=== PATIENT | male | born 1935 | race Caucasian/White ===

== ENCOUNTER 2023-02-12 13:57 | Outpatient (REF) | payer OTHER, SELFPAY ==
--- NOTE | ~2023-02-12 | XR_ITS ---
EXAMINATION: XR HIP, RIGHT CLINICAL INFORMATION: Pain COMPARISON: None available. TECHNIQUE: Two views of the right hip. FINDINGS: No acute fracture or dislocation. Mild degenerative changes of the right hip with degenerative spurring. Soft tissues are unremarkable. Partially imaged penile prosthesis. XR/XR hip RT min 2V IMPRESSION: Mild degenerative changes of the hip.
[2023-02-12 17:08] LABS: MANUAL DIFF FLAG NO
[2023-02-12 17:28] LABS: Alanine Aminotransferase 34 U/L (0-40); Albumin Level 3.9 g/dL (3.5-5.0); Alkaline Phosphatase 143 U/L (39-117); Anion Gap 12 (12-20); Aspartate Amino Transferase 35 U/L (5-37); Bilirubin Total 0.9 mg/dL (0.0-1.0); Blood Urea Nitrogen 23 mg/dL (9-16); Calcium 8.9 mg/dL (8.4-10.2); Carbon Dioxide 28 mmol/L (22-29); Chloride 102 mmol/L (96-108); Estimated Glomerular Filt Rate 55; Glucose Random 103 mg/dL (60-115); Sodium 137 mmol/L (135-145)
[2023-02-12 17:52] LABS: TSH reflex Free T4 3.37 uIU/mL (0.32-4.0); Vitamin B12 1317 pg/mL (200-900)
[2023-02-12 19:34] LABS: Basophils Absolute Auto 0.1 X10*3/uL (0.0-0.2); Eosinophils Absolute Auto 0.9 X10*3/uL (0.0-0.4); Eosinophils Percent Auto 7.2 % (0-4); Imm Gran Abs Auto 0.07 X10*3/uL (0.00-0.03); Imm Gran Pct Auto 0.6 % (0.0-0.4); Lymphocytes Absolute Auto 4.5 X10*3/uL (1.2-4.9); Lymphocytes Percent Auto 36.2 % (20-40); Mean Corpuscular HGB Conc 32.6 g/dl (31.0-36.0); Mean Corpuscular Hemoglobin 29.3 pg (27.0-33.0); Mean Corpuscular Volume 89.8 fL (80.0-98.0); Mean Platelet Volume 13.8 fL (9.4-12.4); Monocytes Absolute Auto 1.1 X10*3/uL (0.1-1.2); Monocytes Percent Auto 8.6 % (2-11); Neutrophils Absolute Auto 5.7 x10*3/uL (2.0-8.3); Neutrophils Percent Auto 46.4 % (45-73); Platelet Count 111 X10*3/uL (160-400); Red Blood Count 5.12 X10*6/uL (4.60-5.80); Red Cell Distribution Width 15.8 % (11.0-16.0); White Blood Count 12.3 X10*3/uL (4.8-10.8)
[2023-02-13 05:26] LABS: Estimated Average Glucose 151 mg/dL; Hemoglobin A1c % 6.9 %
[2023-02-14 03:04] LABS: LDL Cholesterol Direct 54 mg/dL (<100)
== END 2023-02-12 13:58 | disposition home or self-care (01) ==
LOC: HO.HMGCX 13:57
PROVIDERS: PCP Internal Medicine; Visit Provider Internal Medicine
DX: F03.90 Unspecified dementia, unspecified severity, without behavioral disturbance, psychotic disturbance, mood disturbance, and anxiety (principal); J44.9 Chronic obstructive pulmonary disease, unspecified; E78.9 Disorder of lipoprotein metabolism, unspecified; M25.551 Pain in right hip; E11.40 Type 2 diabetes mellitus with diabetic neuropathy, unspecified
CPT/HCPCS: 36415; 73502; 80053; 82607; 83036; 83721; 84443; 85025

== ENCOUNTER → 2023-05-02 12:22 | Outpatient (BNVA) | payer OTHER, SELFPAY | PROVIDERS: Visit Provider Physician Assistant | DX: M54.16 Radiculopathy, lumbar region (principal) | CPT/HCPCS: 99202 ==

== ENCOUNTER 2023-05-15 12:40 | Outpatient (AMB) | payer OTHER, SELFPAY ==
[2023-05-15 12:47] VITALS: BP 132/60; PULSE 70; O2SAT 98; BMI 37.0
--- NOTE | 2023-05-15 12:47 | MHC.PC.OV ---
Vital Signs 05/15/23 12:47 Height 5 ft 7 in Weight 236 lb 8 oz BMI 37.0 BP 132/60 Blood Pressure Location Rt brachial Position Sitting Pulse 70 Pulse Source Pulse Oximeter Pulse Oximetry (%) 98 Oxygen Delivery Method Room Air Intake Visit Reasons: 3m Allergies No Known Allergies Allergy (Verified 05/15/23 12:47) Medication List - Last Reconciled 05/15/23 by Leonardo Wynn MD amlodipine 10 mg PO DAILY aspirin 81 mg PO DAILY atorvastatin 40 mg PO DAILY blood sugar diagnostic (FreeStyle Lite Strips) As directed carbamide peroxide 6.5% (Debrox) 5 drps otic (ears) DAILY 4 days dapagliflozin propanediol (Farxiga) 10 mg PO DAILY dulaglutide (Trulicity) 4.5 mg (0.5 mL) subcut QWEEK 90 days gabapentin 300 mg PO BEDTIME galantamine ER 24 mg PO DAILY 90 days glipizide 10 mg PO DAILY levothyroxine 88 mcg PO DAILY losartan 100 mg PO DAILY pioglitazone 15 mg PO DAILY tamsulosin 0.4 mg PO BEDTIME umeclidinium 62.5 mcg/actuation (Incruse Ellipta) 1 inh inhalation DAILY Tobacco use date assessed: 05/15/23 Fall risk assessment: No Falls in past year Last assessed Fall Risk: 05/15/23 Dental Screening Dental Screen Date: 05/15/23 Did you have a dental visit in the last 12 months?: Yes Did you have a dental problem in the last 6 months where you did not have access to dental care?: No Was dental information given to patient?: No HPI 3m HPI Details Patient is 88-year-old gentleman came in today for his regular follow-up appointment We have a professional aluminum sheet cutter present today as patient speaks only Portuguese Diabetes mellitus: he is on Trulicity and glipizide along with Actos 15 mg and Farxiga hemoglobin A1c is controlled patient is tolerating medication. diabetic neuropathy : he is on gabapentin 300 mg at night Patient also have history of skin cancer and is currently seeing a appraiser personal property. Patient has appointment with neurology coming of this month to be evaluated for dementia and for loss of taste since COVID Hypothyroidism: Patient is taking levothyroxine 88 mcg, TSH stable Blood pressure is stable continue losartan 100 mg and amlodipine 10 mg Patient is also on atorvastatin 40 mg for lipid control Tamsulosin for prostate COPD: History of smoking for years currently taking Incruse Ellipta with good control of symptoms BMI is elevated having difficulty losing weight Continued to have back pain which is responding to Tylenol patient has seen orthopedic doctor they have placed a referral for him to see pain management but patient declined to see them. Labs to be done before next visit in 3 months [facility] Social History Housing: House Patient Tobacco Use Status: Former Tobacco user e-Cigarette/Vaping Use: Never Used service: No Current occupational status: retired Cognitive needs: No Hearing needs: No Vision needs: Yes Questionnaire AUDIT C Alcohol Use Questionnaire (AUDIT-C) 1. How often do you have a drink containing alcohol?: Monthly or less 2. How many drinks containing alcohol do you have on a typical day when you are drinking?: 1 or 2 3. How often do you have six or more drinks on one occasion?: Never Total Score: 1 Score Reviewed/Action Taken: Yes Review of Systems Const Denies chills and Denies fever(s) ENT Denies epistaxis and Denies nasal discharge Card Denies chest pain Resp Denies chest congestion, Denies cough and Denies hemoptysis GI Denies diarrhea and Denies nausea Skin/Breast Denies rash Neuro Reports no additional complaints Psych Reports no additional complaints Endo Reports no additional complaints Physical exam (Primary Care) Vital Signs: Last Vital Signs Pulse 70 05/15/23 12:47 BP 132/60 05/15/23 12:47 Pulse Ox 98 05/15/23 12:47 Oxygen Delivery Method Room Air 05/15/23 12:47 BMI result Body Mass Index 37.0 Tobacco/Smoking Status: Tobacco use Status Tobacco use date assessed 05/15/23 05/15/23 12:52 Patient Tobacco Use Status Former Tobacco user 05/15/23 12:52 e-Cigarette/Vaping Use Never Used 05/15/23 12:52 Const General: cooperative, comfortable and no acute distress Orientation/consciousness: patient oriented x3 HENMT Head: Yes normocephalic Eyes General: appearance normal, both eyes and all related structures Neck Neck: Yes supple Resp Effort & Inspection: normal respiratory effort, no cough and no stridor Cardio Rhythm: regular rhythm Heart sounds: S1 normal heart sound present and S2 normal heart sound present Skin General skin exam: turgor normal Neuro General: patient oriented x3, tone normal and moves all extremities Extrem Right lower extremity: no edema Left lower extremity: no edema Assessment and Plan Assessment & Plan (1) Diabetes 1.5, managed as type 1: Code(s): E13.9 - Other specified diabetes mellitus without complications (2) Dementia: Code(s): F03.90 - Unspecified dementia, unspecified severity, without behavioral disturbance, psychotic disturbance, mood disturbance, and anxiety (3) Diabetic neuropathy: Code(s): E11.40 - Type 2 diabetes mellitus with diabetic neuropathy, unspecified (4) COPD (chronic obstructive pulmonary disease): Code(s): J44.9 - Chronic obstructive pulmonary disease, unspecified (5) Lipid disorder: Code(s): E78.9 - Disorder of lipoprotein metabolism, unspecified (6) Benign prostatic hyperplasia: Code(s): N40.0 - Benign prostatic hyperplasia without lower urinary tract symptoms (7) Other specified hypothyroidism: Code(s): E03.8 - Other specified hypothyroidism (8) Obesity due to excess calories: Code(s): E66.09 - Other obesity due to excess calories (9) Hip pain, right: Code(s): M25.551 - Pain in right hip Plan Patient is 88-year-old gentleman came in today for his regular follow-up appointment We have a professional aluminum sheet cutter present today as patient speaks only Portuguese Diabetes mellitus: he is on Trulicity and glipizide along with Actos 15 mg and Farxiga hemoglobin A1c is controlled patient is tolerating medication. Patient is asking for new Glucometer which we have sent, he is checking his sugar once a day diabetic neuropathy : he is on gabapentin 300 mg at night Patient also have history of skin cancer and is currently seeing a appraiser personal property. Patient has appointment with neurology coming of this month to be evaluated for dementia and for loss of taste since COVID Hypothyroidism: Patient is taking levothyroxine 88 mcg, TSH stable Blood pressure is stable continue losartan 100 mg and amlodipine 10 mg Patient is also on atorvastatin 40 mg for lipid control Tamsulosin for prostate COPD: History of smoking for years currently taking Incruse Ellipta with good control of symptoms BMI is elevated having difficulty losing weight Continued to have back pain which is responding to Tylenol patient has seen orthopedic doctor they have placed a referral for him to see pain management but patient declined to see them. Labs to be done before next visit in 3 months Orders: Orders Comprehensive Met. Panel 3 Months E03.8 - Other specified hypothyroidism, E11.40 - Type 2 diabetes mellitus with diabetic neuropathy, unspecified, E13.9 - Other specified diabetes mellitus without complications, E66.09 - Other obesity due to excess calories, E78.9 - Disorder of lipoprotein metabolism, unspecified, F03.90 - Unspecified dementia, unspecified severity, without behavioral disturbance, psychotic disturbance, mood disturbance, and anxiety, J44.9 - Chronic obstructive pulmonary disease, unspecified, M25.551 - Pain in right hip, N40.0 - Benign prostatic hyperplasia without lower urinary tract symptoms Hemoglobin A1c 3 Months E03.8 - Other specified hypothyroidism, E11.40 - Type 2 diabetes mellitus with diabetic neuropathy, unspecified, E13.9 - Other specified diabetes mellitus without complications, E66.09 - Other obesity due to excess calories, E78.9 - Disorder of lipoprotein metabolism, unspecified, F03.90 - Unspecified dementia, unspecified severity, without behavioral disturbance, psychotic disturbance, mood disturbance, and anxiety, J44.9 - Chronic obstructive pulmonary disease, unspecified, M25.551 - Pain in right hip, N40.0 - Benign prostatic hyperplasia without lower urinary tract symptoms LDL Cholesterol Direct 3 Months E03.8 - Other specified hypothyroidism, E11.40 - Type 2 diabetes mellitus with diabetic neuropathy, unspecified, E13.9 - Other specified diabetes mellitus without complications, E66.09 - Other obesity due to excess calories, E78.9 - Disorder of lipoprotein metabolism, unspecified, F03.90 - Unspecified dementia, unspecified severity, without behavioral disturbance, psychotic disturbance, mood disturbance, and anxiety, J44.9 - Chronic obstructive pulmonary disease, unspecified, M25.551 - Pain in right hip, N40.0 - Benign prostatic hyperplasia without lower urinary tract symptoms TSH reflex Free T4 3 Months E03.8 - Other specified hypothyroidism, E11.40 - Type 2 diabetes mellitus with diabetic neuropathy, unspecified, E13.9 - Other specified diabetes mellitus without complications, E66.09 - Other obesity due to excess calories, E78.9 - Disorder of lipoprotein metabolism, unspecified, F03.90 - Unspecified dementia, unspecified severity, without behavioral disturbance, psychotic disturbance, mood disturbance, and anxiety, J44.9 - Chronic obstructive pulmonary disease, unspecified, M25.551 - Pain in right hip, N40.0 - Benign prostatic hyperplasia without lower urinary tract symptoms Microalbumin, Random (w Creat) 3 Months E03.8 - Other specified hypothyroidism, E11.40 - Type 2 diabetes mellitus with diabetic neuropathy, unspecified, E13.9 - Other specified diabetes mellitus without complications, E66.09 - Other obesity due to excess calories, E78.9 - Disorder of lipoprotein metabolism, unspecified, F03.90 - Unspecified dementia, unspecified severity, without behavioral disturbance, psychotic disturbance, mood disturbance, and anxiety, J44.9 - Chronic obstructive pulmonary disease, unspecified, M25.551 - Pain in right hip, N40.0 - Benign prostatic hyperplasia without lower urinary tract symptoms Prostate Specific Antigen Today N40.0 - Benign prostatic hyperplasia without lower urinary tract symptoms Medications: New amlodipine 10 mg PO DAILY 90 tabs 0RF losartan 100 mg PO DAILY 90 tabs 0RF tamsulosin 0.4 mg PO BEDTIME 90 caps 0RF umeclidinium 62.5 mcg/actuation (Incruse Ellipta) 1 inh inhalation DAILY 30 ea 1RF Refilled dulaglutide (Trulicity) 4.5 mg (0.5 mL) subcut QWEEK 6.5 mL 0RF 90 days gabapentin 300 mg PO BEDTIME 90 caps 0RF glipizide 10 mg PO DAILY 90 tabs 0RF pioglitazone 15 mg PO DAILY 90 tabs 0RF levothyroxine 88 mcg PO DAILY 90 tabs 0RF atorvastatin 40 mg PO DAILY 90 tabs 0RF Coding Level of Care Code Est Pt Level 4 (76072) Diagnoses Diabetes 1.5, managed as type 1 E13.9 Dementia F03.90 Diabetic neuropathy E11.40 COPD (chronic obstructive pulmonary disease) J44.9 Lipid disorder E78.9 Benign prostatic hyperplasia N40.0 Other specified hypothyroidism E03.8 Obesity due to excess calories E66.09 Hip pain, right M25.551
== END 2023-05-15 13:21 | disposition home or self-care (01) ==
PROVIDERS: Visit Provider Internal Medicine
DX: F03.90 Unspecified dementia, unspecified severity, without behavioral disturbance, psychotic disturbance, mood disturbance, and anxiety (principal); E11.40 Type 2 diabetes mellitus with diabetic neuropathy, unspecified; J44.9 Chronic obstructive pulmonary disease, unspecified; Z68.37 Body mass index [BMI] 37.0-37.9, adult; E78.9 Disorder of lipoprotein metabolism, unspecified; N40.0 Benign prostatic hyperplasia without lower urinary tract symptoms; E66.09 Other obesity due to excess calories; M25.551 Pain in right hip
CPT/HCPCS: 99214

== ENCOUNTER 2023-05-30 10:46 | Outpatient (AMB) | payer OTHER, SELFPAY ==
--- NOTE | 2023-05-30 11:09 | A.OFFVIS_ITS ---
Intake Vital Signs 05/30/23 11:10 Height 5 ft 7 in Weight 237 lb BMI 37.1 BP 140/70 H Blood Pressure Location Rt brachial Position Sitting Intake Visit Reasons: NPV-Dementia -Confirmed Intake Note: Patient presents for evaluation for dementia Allergies No Known Allergies Allergy (Verified 05/30/23 11:14) Medication List - Last Reconciled 05/30/23 by Roz Duarte MD amlodipine 10 mg PO DAILY aspirin 81 mg PO DAILY atorvastatin 40 mg PO DAILY blood sugar diagnostic (ALEXANDALEXATouch Verio test strips) Test blood sugar once a day blood-glucose meter (ALEXANDALEXATouch Verio Flex Meter) Once a day carbamide peroxide 6.5% (Debrox) 5 drps otic (ears) DAILY 4 days dapagliflozin propanediol (Farxiga) 10 mg PO DAILY dulaglutide (Trulicity) 4.5 mg (0.5 mL) subcut QWEEK 90 days gabapentin 300 mg PO BEDTIME galantamine ER 24 mg PO DAILY 90 days glipizide 10 mg PO DAILY lancets (ALEXANDALEXATouch Delica Plus Lancet) test blood sugar once a day levothyroxine 88 mcg PO DAILY losartan 100 mg PO DAILY memantine 7 mg PO DAILY pioglitazone 15 mg PO DAILY tamsulosin 0.4 mg PO BEDTIME umeclidinium 62.5 mcg/actuation (Incruse Ellipta) 1 inh inhalation DAILY HPI HPI Comments History of Present Illness Details 88y/o male comes for evaluation of cognitive difficulties. He has been having some memory issues for 30 years but for past 1 year it has worsened.He has short term memory issues, forgets conversations, misplaces things, confused with people, time, place etc. He needs help with his daily hygiene. He denies hallucination, delusions. He has blurry vision and sees some bright shapes. He is more irritable.He feels depressed sometimes. He has sleep apnea on CPAP ( 10 years)but still has residual snoring. [facility] Medical History (Updated 05/30/23 @ 11:51 by Roz Duarte MD) Benign prostatic hyperplasia COPD (chronic obstructive pulmonary disease) Dementia Diabetes 1.5, managed as type 1 Diabetic neuropathy Hip pain, right History of skin cancer Lipid disorder Loss of taste Lumbar radicular pain Obesity due to excess calories Obstructive sleep apnea Other specified hypothyroidism Family History Daughter Breast cancer Social History Housing: House Patient Tobacco Use Status: Former Tobacco user e-Cigarette/Vaping Use: Never Used service: No Current occupational status: retired Cognitive needs: No Hearing needs: No Vision needs: Yes Review of Systems Const Denies chills and Denies fever(s) ENT Denies epistaxis and Denies nasal discharge Card Denies chest pain Resp Denies chest congestion, Denies cough and Denies hemoptysis GI Denies diarrhea and Denies nausea Skin/Breast Denies rash Neuro Reports no additional complaints and Reports confusion Psych Reports no additional complaints and Reports confusion Endo Reports no additional complaints Physical Exam Vital Signs: Last Vital Signs BP 140/70 H 05/30/23 11:10 BMI result Body Mass Index 37.1 Const General: cooperative, healthy appearing, comfortable, no acute distress and confusion Nutritional Appearance: obese Orientation/consciousness: confusion Eyes Pupils: Equal, round and reactive pupils present Neuro Other: mild left facail droop General: tone normal, moves all extremities, no focal motor deficits and confusion Cranial nerves: Yes Equal, round and reactive pupils present, Yes Bilaterally intact EOM present, Yes Nystagmus not present, Yes Midline tongue present, Yes Symmetric palate elevation present and Yes Ability to bilaterally elevate shoulders present Cognition (Neuro): abnormal cognition Gait exam (Neuro): Antalgic gait present Deep tendon reflexes (DTR's): Right triceps reflex intensity grade: 2+, Left triceps reflex intensity grade: 2+, Rt Biceps (C5, C6): 2+, Left biceps reflex intensity grade: 2+, Right brachioradialis reflex intensity grade: 2+, Left brachioradialis reflex intensity grade: 2+, Right patellar reflex intensity grade: 2+ and Left patellar reflex intensity grade: 2+ Coordination: [id number] test normal Orientation What is the (year) (season) (date) (day) (month)?: year, season and day Where are we (state) (county) (town or city) (hospital) (floor)?: state, town or city and hospital/clinic Registration Name of 3 unrelated objects clearly and slowly, then ask patient to repeat all 3 of them. (1st repeat determines score. Make sure they can repeat all three): object 1, object 2 and object 3 Attention & Calculation (CHOOSE ONE) Spell WORLD backwards (DLROW): 2 letters Language Show patient a wristwatch & ask what it is. Repeat for pencil.: watch and pencil Ask the patient to repeat the phrase 'No ifs, ands, or buts' after you.: correct Ask the patient to 'take a piece of paper with their right hand' 'fold paper in half' 'place paper on floor': take paper in right hand and fold paper in half Print the sentence 'CLOSE YOUR EYES' on a piece. If patient actually closes eyes then score.: followed written direction Give patient a blank piece of paper & ask to write a sentence. Score if it contains a noun & verb.: sentence contains subject and verb Ask patient to copy figure of intersecting pentagons exactly. Score if all 10 angles & 2 intersects are included.: all 10 angles present & 2 are intersected Score Score: 19 Assessment & Plan Assessment & Plan (1) Dementia: Code(s): F03.90 - Unspecified dementia, unspecified severity, without behavioral disturbance, psychotic disturbance, mood disturbance, and anxiety (2) Obstructive sleep apnea: Code(s): G47.33 - Obstructive sleep apnea (adult) (pediatric) Plan CT Brain to evaluate r/o NPH Home sleep test to revaluate Labs reviewed Orders: Orders RT home sleep study Today G47.33 - Obstructive sleep apnea (adult) (pediatric) CT head/brain wo IV con Today F03.90 - Unspecified dementia, unspecified severity, without behavioral disturbance, psychotic disturbance, mood disturbance, and anxiety Medications: New memantine 7 mg PO DAILY 30 ea 0RF Coding Level of Care Code New Pt Level 4 (20775) Diagnoses Dementia F03.90 Obstructive sleep apnea G47.33
[2023-05-30 11:10] VITALS: BP 140/70; BMI 37.1
== END 2023-05-30 13:20 | disposition home or self-care (01) ==
PROVIDERS: Visit Provider Psychiatry & Neurology Neurology
DX: F03.90 Unspecified dementia, unspecified severity, without behavioral disturbance, psychotic disturbance, mood disturbance, and anxiety (principal); G47.33 Obstructive sleep apnea (adult) (pediatric)
CPT/HCPCS: 99204

== ENCOUNTER → 2023-05-30 10:46 | Outpatient (BNVA) | payer OTHER, SELFPAY | PROVIDERS: Visit Provider Psychiatry & Neurology Neurology | DX: F03.90 Unspecified dementia, unspecified severity, without behavioral disturbance, psychotic disturbance, mood disturbance, and anxiety (principal); G47.33 Obstructive sleep apnea (adult) (pediatric); Z99.89 Dependence on other enabling machines and devices | CPT/HCPCS: 99202 ==

== ENCOUNTER 2023-06-06 10:53 | Outpatient (AMB) | payer OTHER, SELFPAY ==
--- NOTE | 2023-06-06 11:14 | MHC.OFFVIS ---
Intake Vital Signs 06/06/23 11:15 Height 5 ft 7 in Weight 240 lb BMI 37.6 BP 150/70 H Blood Pressure Location Lt brachial Position Sitting Respiration 16 Pulse 73 Pulse Source Pulse Oximeter Pulse Oximetry (%) 95 Oxygen Delivery Method Room Air Intake Visit Reasons: LUMBAR RADICULAR PAIN Allergies No Known Allergies Allergy (Verified 06/06/23 11:16) HPI HPI Comments History of Present Illness Details Poncho is a very pleasant 88 year old male who presents to the office today with his for evaluation and management of his left lower back pain. Patient recently evaluated by orthopedics for hip pain which has since resolved after PT. Today he complains of left lower back pain that radiates around to LLQ abdomen. He describes the pain as hot, burning, constant and severe. Area is non tender to palpation. He does take gabapentin for diabetic neuropathy but does not notice any benefit of pain relief to this area. Pain started around 2 months ago and persists. He denies inciting injury, has never had a rash in that area. Patient received 2 doses of shingles vaccines in the past. He is taking tylenol 650mg with some relief. He has not tried any topical medications, ice or heat for the pain. Patient is diabetic and complains of burning, pins and needles to both feet. At times the pain gets so severe he will have to bang them on the floor. Gabapentin is prescribed for the pain and helps some but he only takes it once daily. Most recent A1c was 6.9 on 02/12/2023. In terms of muscle damage condition is described as hot, burning, stabbing, sharp, tingling, pins and needles. Pain is negatively impacting his mood, mobility and general activity. REPLACED BY [facility] Medical History (Updated 06/06/23 @ 15:19 by Cely Corona APRN, GALVANIZER) Benign prostatic hyperplasia COPD (chronic obstructive pulmonary disease) Dementia Diabetes 1.5, managed as type 1 Diabetic neuropathy Hip pain, right History of skin cancer Lipid disorder Loss of taste Lumbar radicular pain Obesity due to excess calories Obstructive sleep apnea Other specified hypothyroidism Family History Daughter Breast cancer Social History Housing: House Patient Tobacco Use Status: Former Tobacco user e-Cigarette/Vaping Use: Never Used service: No Current occupational status: retired Cognitive needs: No Hearing needs: No Vision needs: Yes Review of Systems Const All systems reviewed & are unremarkable except as noted in HPI and below Physical Exam Vital Signs: Last Vital Signs Pulse 73 06/06/23 11:15 Resp 16 06/06/23 11:15 BP 150/70 H 06/06/23 11:15 Pulse Ox 95 06/06/23 11:15 Oxygen Delivery Method Room Air 06/06/23 11:15 BMI result Body Mass Index 37.6 General: awake, alert. Answers questions appropriately. Fully engaged in examination. Skin: warm, dry, intact without visible rashes or lesions. HEENT: Normocephalic. . Hearing intact. Cardiac: External chest normal in appearance. Respiratory: No signs of trauma. No signs of respiratory distress. No cough, audible wheezing or stridor. Abdomen: without gross distension. MS: No obvious swelling or deformities. Able to stand on bilateral tiptoes and bilateral heels.? Able to transition from sit to stand unassisted. Ambulates with bilaterally normal heel strike and toe off Tender to palpation over left lumbar paraspinal muscles nontender to palpation over midline lumbar vertebrae SLR with and without dorsiflexion negative bilaterally Facet loading negative bilaterally full ROM bilateral hips Neurological: Oriented to person, place, time and situation. Thought process intact. No gait abnormalities appreciated. Psychiatric: Appropriate mood and affect. Good judgment and insight. Results Reviewed Results Reviewed: 02/12/2023 EXAMINATION: XR HIP, RIGHT FINDINGS: No acute fracture or dislocation. Mild degenerative changes of the right hip with degenerative spurring. Soft tissues are unremarkable. Partially imaged penile prosthesis.? IMPRESSION: Mild degenerative changes of the hip. ? Assessment & Plan Assessment & Plan (1) Post herpetic neuralgia: Code(s): B02.29 - Other postherpetic nervous system involvement (2) Facet arthritis of lumbar region: Code(s): M47.816 - Spondylosis without myelopathy or radiculopathy, lumbar region (3) Diabetic neuropathy: Code(s): E11.40 - Type 2 diabetes mellitus with diabetic neuropathy, unspecified Plan Poncho is a very pleasant 88 year old male who presented to the office for evaluation and management of left lower back pain with radiation around to LLQ abdomen. Xray LS ordered for eval. Lidocaine topical patches on for 12 hours, off for 12 hours. Pamphlet for Qutenza given to patient today, patient would like to proceed with Qutenza application for painful diabetic neuropathy in both feet. Will submit to insurance for approval. Patient's left flank burning pain radiating around to LLQ consistent with post herpetic neuralgia despite patient receiving shingles vaccine and no history of rash. If he does not get relief with lidocaine patches can consider Qutenza or Sprint PNS for persistent post herpetic neuralgia. Informational pamphlets provided. All questions and concerns have been answered and patient agrees with the plan. Follow up after injections and sooner if needed. Orders: Orders XR lumbar spine 4V min Today M54.16 - Radiculopathy, lumbar region Medications: New lidocaine 5% leave on most painful area for up to 12 hrs 1 patch topical DAILY PRN 30 ea 0RF pain B02.29 - Other postherpetic nervous system involvement, M47.816 - Spondylosis without myelopathy or radiculopathy, lumbar region Coding Level of Care Code New Pt Level 4 (15178) Diagnoses Post herpetic neuralgia B02.29 Facet arthritis of lumbar region M47.816 Diabetic neuropathy E11.40
[2023-06-06 11:15] VITALS: BP 150/70; PULSE 73; RESP 16; O2SAT 95; BMI 37.6
== END 2023-06-06 11:42 | disposition home or self-care (01) ==
PROVIDERS: PCP Internal Medicine; Visit Provider Registered Nurse Emergency
DX: B02.29 Other postherpetic nervous system involvement (principal); M47.816 Spondylosis without myelopathy or radiculopathy, lumbar region; E11.40 Type 2 diabetes mellitus with diabetic neuropathy, unspecified
CPT/HCPCS: 99204

== ENCOUNTER → 2023-06-06 10:53 | Outpatient (BNVA) | payer OTHER, SELFPAY | PROVIDERS: PCP Internal Medicine; Visit Provider Registered Nurse Emergency | DX: M47.26 Other spondylosis with radiculopathy, lumbar region (principal); B02.29 Other postherpetic nervous system involvement; E11.40 Type 2 diabetes mellitus with diabetic neuropathy, unspecified | CPT/HCPCS: 99202 ==

== ENCOUNTER 2023-06-19 10:46 | Outpatient (REF) | payer OTHER, SELFPAY ==
--- NOTE | ~2023-06-19 | XR_ITS ---
EXAMINATION: XR LUMBOSACRAL SPINE WITH OBLIQUES CLINICAL INFORMATION: Radiculopathy, lumbar region COMPARISON: None available. TECHNIQUE: AP, both oblique, and lateral views of the lumbar spine. Lateral view of the lumbosacral junction. FINDINGS: There 5 nonrib-bearing lumbar-type vertebral bodies. The height of the vertebral bodies is well-maintained. There is severe disc space narrowing with discogenic sclerosis and large anterior marginal osteophytes at L4-L5. There is question of L4 pars defect. There is grade 1 anterolisthesis of L5 on S1. There is marked degenerative facet joint disease L4-L5 and L5-S1. There is straightening of the usual lumbar lordosis which can be seen with muscle spasm. XR/XR lumbar spine 4V min IMPRESSION: 1. Muscle spasm. 2. Severe degenerative disc disease at L4-L5. 3. Grade 1 anterolisthesis of L5 on S1. 4. Question of L4 pars defect. CT scan or MRI scan could be obtained for further evaluation.
== END 2023-06-19 10:47 | disposition home or self-care (01) ==
LOC: HO.XRAY 10:46
PROVIDERS: PCP Internal Medicine; Visit Provider Registered Nurse Emergency
DX: M54.16 Radiculopathy, lumbar region (principal)
CPT/HCPCS: 72110

== ENCOUNTER 2023-06-28 13:10 | Outpatient (AMB) | payer OTHER, SELFPAY ==
--- NOTE | 2023-06-28 13:23 | MHC.OFFVIS ---
Intake Vital Signs 06/28/23 13:25 06/28/23 14:02 06/28/23 14:24 Height 5 ft 7 in Weight 240 lb BMI 37.6 BP 141/63 H 120/56 L 138/65 Blood Pressure Location Lt brachial Lt brachial Lt brachial Position Sitting Sitting Sitting Pulse 74 70 71 Pulse Source Pulse Oximeter Pulse Oximeter Pulse Oximeter Pulse Oximetry (%) 97 98 98 Oxygen Delivery Method Room Air Room Air Room Air Comment 15 mins after qutenza application 30 mins after qutenza application Intake Visit Reasons: QUTENZA/DN Intake Note: Poncho comes in today for qutenza application to bilateral feet. Pain today 03/13. Qutenza lot # [id number], exp , [facility] 22780-458-06 Stoker Mechanic Required: Yes Stoker Mechanic Language: Tajik Allergies No Known Allergies Allergy (Verified 06/28/23 14:25) HPI HPI Comments History of Present Illness Details Patient is a pleasant 88 years old Tajik speaking male presents for application of capsaicin 8% topical patch for peripheral neuropathy in bilateral feet. He is accompanied by Medical Studio Coordinator. Patient reports he applied EMLA cream to both of his feet after washing them prior to this visit. Denies any recent cough, cold, infection, fever or other significant changes in medical history since last office visit. Lumbar spine xray results were reviewed with patient today in greater lengths and noted for muscle spasm, severe degenerative disc disease at L4-L5, Grade 1 anterolisthesis of L5 on S1 and question of L4 pars defect. He endorses low back pain with walking or bending, changing positions. Pain is axial and also radiates into his left lower extremity laterally and posteriorly with numbness and tingling. Reports burning, aching and tingling pain in both feet related to diabetic neuropathy. Patient reports lidocaine patches with minimal effect to his left back to left abdomen pain related to PHN. Gabapentin provides him partial pain control. He is interested to undergo lumbar spine MRI for potential therapeutic back injections to alleviate his radicular symptoms. Denies any abdominal or groin pain, bladder or bowel incontinence or saddle anesthesia. PRIOR 06/06/23 Cely Corona [employer]ATION CLEANING PORTER: Poncho is a very pleasant 88 year old male who presents to the office today with his for evaluation and management of his left lower back pain. Patient recently evaluated by orthopedics for hip pain which has since resolved after PT. Today he complains of left lower back pain that radiates around to LLQ abdomen. He describes the pain as hot, burning, constant and severe. Area is non tender to palpation. He does take gabapentin for diabetic neuropathy but does not notice any benefit of pain relief to this area. Pain started around 2 months ago and persists. He denies inciting injury, has never had a rash in that area. Patient received 2 doses of shingles vaccines in the past. He is taking tylenol 650mg with some relief. He has not tried any topical medications, ice or heat for the pain. Patient is diabetic and complains of burning, pins and needles to both feet. At times the pain gets so severe he will have to bang them on the floor. Gabapentin is prescribed for the pain and helps some but he only takes it once daily. Most recent A1c was 6.9 on 02/12/2023. In terms of muscle damage condition is described as hot, burning, stabbing, sharp, tingling, pins and needles. Pain is negatively impacting his mood, mobility and general activity. [facility] Medical History Benign prostatic hyperplasia COPD (chronic obstructive pulmonary disease) Dementia Diabetes 1.5, managed as type 1 Diabetic neuropathy Hip pain, right History of skin cancer Lipid disorder Loss of taste Lumbar radicular pain Obesity due to excess calories Obstructive sleep apnea Other specified hypothyroidism Family History Daughter Breast cancer Social History Housing: House Patient Tobacco Use Status: Former Tobacco user e-Cigarette/Vaping Use: Never Used service: No Current occupational status: retired Cognitive needs: No Hearing needs: No Vision needs: Yes Review of Systems Const All systems reviewed & are unremarkable except as noted in HPI and below Physical Exam Vital Signs: Last Vital Signs Pulse 71 06/28/23 14:24 BP 138/65 06/28/23 14:24 Pulse Ox 98 06/28/23 14:24 Oxygen Delivery Method Room Air 06/28/23 14:24 BMI result Body Mass Index 37.6 General: Appears afebrile. Alert and oriented. Mood and affect appropriate. Follows and participates in conversation appropriately. Respiratory effort is unlabored. No cough. No nasal discharge. Able to transition from sit to stand unassisted. Ambulates with bilaterally normal heel strike and toe off. Back/Spine/Pelvis Other: Lumbar flexion and extension reproduce his low back pain and left lateral leg pain with numbness, tingling sensations in his left calf and lateral LLE with seated SLR testing and dorsiflexion. SLR is negative on the right. No groin pain with I/E hip rotations bilaterally. Cervical Spine: cervical ROM normal and No Cervical spine tenderness Thoracic/Lumbar Spine: thoracic and lumbar spine normal to inspection, Lasegue's sign positive on the left and diffuse, pain with thoraco-lumbar ROM, paraspinal muscle tenderness on the left greater than right, thoraco-lumbar ROM limited, No thoracic spinal tenderness and lumbar spinal tenderness at L4 and at L5 Extrem Other: There is a decreased sensation over the soles of the feet and toes. Reports burning, tingling and numbness in both feet. No breaks in the skin. No soft tissue swelling or warmth. +2 pedal pulses bilaterally. Office Procedures Topical Capsaicin Date 1:: 06/28/23 Main area of pain on the body: Bilateral feet Laterality: Bilateral Location of left foot pain: Plantar and Dorsal Location of right foot pain: Plantar and Dorsal Quality of pain: Aching, Burning, Numb-like and Tiring Details:: Two patches, 560 cm2 were utilized per each foot. EMLA Cream (lidocaine 2.5% and prilocaine 2.5%) was applied at home by patient prior to application of the patches. The patient tolerated the procedure well. His vitals signs remained stable throughout the procedure. Patient was able to complete the stipulated 30 minutes of the therapeutic application without any discomfort. Office Meds capsaicin-skin cleanser 8 % Performing Provider: MANOHAR Abreu Administered by: MANOHAR Abreu on 06/28/23 13:43 Dose Route Admin Location Lot Number Expiration Date [facility] [employer] topical [facility] [id number] 11/04/25 [id number] [employer] Results Reviewed Results Reviewed: XR LUMBOSACRAL SPINE WITH OBLIQUES 06/19/23 FINDINGS: There 5 nonrib-bearing lumbar-type vertebral bodies. The height of the vertebral bodies is well-maintained. There is severe disc space narrowing with discogenic sclerosis and large anterior marginal osteophytes at L4-L5. There is question of L4 pars defect. There is grade 1 anterolisthesis of L5 on S1. There is marked degenerative facet joint disease L4-L5 and L5-S1. There is straightening of the usual lumbar lordosis which can be seen with muscle spasm. IMPRESSION: 1. Muscle spasm. 2. Severe degenerative disc disease at L4-L5. 3. Grade 1 anterolisthesis of L5 on S1. 4. Question of L4 pars defect. CT scan or MRI scan could be obtained for further evaluation. Assessment & Plan Assessment & Plan (1) Facet arthritis of lumbar region: Code(s): M47.816 - Spondylosis without myelopathy or radiculopathy, lumbar region (2) Lumbar radicular pain: Code(s): M54.16 - Radiculopathy, lumbar region (3) Pars defect with spondylolisthesis: Code(s): M43.10 - Spondylolisthesis, site unspecified (4) Diabetic neuropathy: Code(s): E11.40 - Type 2 diabetes mellitus with diabetic neuropathy, unspecified Plan 1. Lumbar spine xray results were discussed with patient via Bicycle Ii Assembler in great detail. Will proceed with MRI of the lumbar spine to assess for neural integrity and compression. 2. Patient is status post 1st round of application of topical capsaicin 8% for diabetic neuropathy in bilateral feet. Patient tolerated the procedure without significant discomfort with application of EMLA cream prior to the procedure. He was discharged home in stable condition with discharge instructions. All questions and concerns were answered and the patient agreed with the plan. Follow up for MRI results with Cely VILLELA and sooner as needed. Greater than 45 minutes were spent in therapeutic application and in coordination of the care. Orders: Orders MR lumbar spine wo con 06/28/23 M43.10 - Spondylolisthesis, site unspecified, M47.816 - Spondylosis without myelopathy or radiculopathy, lumbar region, M54.16 - Radiculopathy, lumbar region AMB Capsaicin Patch - Practice Supplied 06/28/23 E11.40 - Type 2 diabetes mellitus with diabetic neuropathy, unspecified Coding Level of Care Code Est Pt Level 5 (14712) Diagnoses Facet arthritis of lumbar region M47.816 Lumbar radicular pain M54.16 Pars defect with spondylolisthesis M43.10 Diabetic neuropathy E11.40
[2023-06-28 13:25] VITALS: BP 141/63; PULSE 74; O2SAT 97; BMI 37.6
[2023-06-28 14:02] VITALS: BP 120/56; PULSE 70; O2SAT 98
[2023-06-28 14:24] VITALS: BP 138/65; PULSE 71; O2SAT 98
== END 2023-06-28 14:30 | disposition home or self-care (01) ==
PROVIDERS: PCP Internal Medicine; Visit Provider Nurse Practitioner Family
DX: M47.816 Spondylosis without myelopathy or radiculopathy, lumbar region (principal); M54.16 Radiculopathy, lumbar region; M43.10 Spondylolisthesis, site unspecified; E11.40 Type 2 diabetes mellitus with diabetic neuropathy, unspecified
CPT/HCPCS: 17999; 99214

== ENCOUNTER → 2023-06-28 13:10 | Outpatient (BNVA) | payer OTHER, SELFPAY | PROVIDERS: PCP Internal Medicine; Visit Provider Nurse Practitioner Family | DX: E11.40 Type 2 diabetes mellitus with diabetic neuropathy, unspecified (principal); M47.26 Other spondylosis with radiculopathy, lumbar region; M43.10 Spondylolisthesis, site unspecified | CPT/HCPCS: 17999; 99212; J7336 ==

== ENCOUNTER 2023-07-18 12:50 | Outpatient (REF) | payer OTHER, SELFPAY ==
--- NOTE | ~2023-07-18 | CT_ITS ---
EXAMINATION: CT head/brain wo IV con CLINICAL INFORMATION: Reason for Exam F03.90 - Unspecified dementia, unspecified severity, without behavioral ... COMPARISON: None. TECHNIQUE: Contiguous axial imaging was performed from the skull base to vertex without intravenous contrast. Sagittal and coronal reformatted images were obtained. This CT examination was performed using dose optimization techniques as appropriate, variously including the following: * Automated exposure control * Adjustment of mA and/or kV according to patient size (this includes techniques or standardized protocols for targeted exams where dose is matched to indication/reason for exam; i.e. extremities or head) Use of iterative reconstruction technique DLP: 776 mGy-cm FINDINGS: Moderate generalized parenchymal volume loss. Patchy periventricular and deep white matter hypoattenuation is nonspecific but likely reflects sequelae of mild chronic microangiopathy. 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 No territorial loss of araiza-white differentiation. No acute intracranial hemorrhage or extra-axial fluid collection. No mass lesion, significant mass effect, or herniation pattern. Intracranial calcific atherosclerosis. The orbits are grossly normal. Moderate ethmoid air cell mucosal disease with some aerated secretions in a posterior right ethmoid air cell. Right mastoid effusion. Osseous structures are intact. CT/CT head/brain wo IV con IMPRESSION: No acute intracranial process. Moderate global cerebral volume loss without lobar predilection. Presumed mild chronic microangiopathy with chronic appearing lacunar infarcts within the left caudate head and left centrum semiovale.
== END 2023-07-18 12:51 | disposition home or self-care (01) ==
LOC: HO.CT 12:50
PROVIDERS: PCP Internal Medicine; Visit Provider Psychiatry & Neurology Neurology
DX: F03.90 Unspecified dementia, unspecified severity, without behavioral disturbance, psychotic disturbance, mood disturbance, and anxiety (principal)
CPT/HCPCS: 70450

== ENCOUNTER 2023-08-20 12:41 | Outpatient (AMB) | payer OTHER, SELFPAY ==
--- NOTE | 2023-08-20 12:51 | A.OFFPC_ITS ---
Vital Signs 08/20/23 12:52 Height 5 ft 7 in Weight 239 lb BMI 37.4 BP 120/58 L Blood Pressure Location Lt brachial Position Sitting Pulse 77 Pulse Source Pulse Oximeter Pulse Oximetry (%) 95 Oxygen Delivery Method Room Air Intake Visit Reasons: 3 Month Follow Up Intake Note: Pt is here today for 3 months follow up visit. Allergies No Known Allergies Allergy (Verified 08/20/23 12:54) Medication List - Last Reconciled 08/20/23 by Leonardo Wynn MD amlodipine 10 mg PO DAILY aspirin 81 mg PO DAILY atorvastatin 40 mg PO DAILY blood sugar diagnostic ([facility] Ver[facility] test strips) Test blood sugar once a day blood-glucose meter ([facility] Verio Flex Meter) Once a day carbamide peroxide 6.5% (Debrox) 5 drps otic (ears) DAILY 4 days dapagliflozin propanediol (Farxiga) 10 mg PO DAILY dulaglutide (Trulicity) 4.5 mg (0.5 mL) subcut QWEEK 90 days gabapentin 300 mg PO BEDTIME galantamine ER 24 mg PO DAILY 90 days glipizide 10 mg PO DAILY lancets ([facility] Delica Plus Lancet) test blood sugar once a day levothyroxine 88 mcg PO DAILY lidocaine 5% 1 patch topical DAILY PRN lidocaine-prilocaine 2.5-2.5 % 1 appl topical ONCE losartan 100 mg PO DAILY memantine 7 mg PO DAILY pioglitazone 15 mg PO DAILY tamsulosin 0.4 mg PO BEDTIME umeclidinium 62.5 mcg/actuation (Incruse Ellipta) 1 inh inhalation DAILY vit C,Q-Gc-gdetu-lutein-zeaxan 250-90-40-1 mg (PreserVision AREDS-2) 1 cap PO BID Tobacco use date assessed: 05/15/23 HPI 3 Month Follow Up HPI Details Patient is 88-year-old gentleman came in today for his regular follow- up appointment We have a professional fuel quality tech present today as patient speaks only Hebrew Diabetes mellitus: he is on Trulicity and glipizide along with Actos 15 mg and Farxiga hemoglobin A1c is controlled patient is tolerating medication. Last time he had labs done was February of this year his hemoglobin A1c was 6.9, patient was supposed to have labs before this visit but he did not. He will be having them today diabetic neuropathy : he is on gabapentin 300 mg at night Patient also have history of skin cancer and is currently seeing a director of agronomy. History of dementia, patient is now seeing neurology in taking medications through them Dr. Duarte Hypothyroidism: Patient is taking levothyroxine 88 mcg, TSH stable Blood pressure is stable continue losartan 100 mg and amlodipine 10 mg Patient is also on atorvastatin 40 mg for lipid control Tamsulosin for prostate COPD: History of smoking for years currently taking Incruse Ellipta with good control of symptoms BMI is elevated having difficulty losing weight Continued to have back pain , patient is now seeing pain management for that He has appointment for follow-up in November [facility] Medical History Obstructive sleep apnea Lumbar radicular pain Loss of taste Hip pain, right Obesity due to excess calories Other specified hypothyroidism History of skin cancer Benign prostatic hyperplasia Lipid disorder Dementia Diabetic neuropathy COPD (chronic obstructive pulmonary disease) Diabetes 1.5, managed as type 1 Family History Daughter Breast cancer Social History Housing: House Patient Tobacco Use Status: Former Tobacco user e-Cigarette/Vaping Use: Never Used service: No Current occupational status: retired Cognitive needs: No Hearing needs: No Vision needs: Yes Questionnaire PHQ-9 Over the last 2 weeks, how often have you been bothered by any of the following problems? 1. Little interest or pleasure in doing things: several days 2. Feeling down, depressed, or hopeless: several days 3. Trouble falling or staying asleep, or sleeping too much: not at all 4. Feeling tired or having little energy: several days 5. Poor appetite or overeating: not at all 6. Feeling bad about yourself - or that you are a failure or have let yourself or your family down: not at all 7. Trouble concentrating on things, such as reading the newspaper or watching television: several days 8. Moving or speaking so slowly that other people could have noticed. Or the opposite - being so fidgety or restless that you have been moving around a lot more than usual: not at all 9. Thoughts that you would be better off or of hurting yourself in some way: not at all Total score: 4 Depression Screening Interpretation: Negative Depression Screening Done: Yes 75763 - PHQ-9 Billing: Yes Source: Developed by Drs. Jose Sauceda, Silvia Hay, Feng Julian and colleagues, with an educational hardik from [employer]. Thrive Questionnaire Date Thrive assessed: 08/20/23 I am a: Patient What is your living situation today?: I have a steady place to live Within the past 12 months, did the food you bought not last and you didn't have the money to get more?: Never true Within the past 12 months, did you worry whether your food would run out before you got money to buy more?: Never true Do you have trouble paying for medicines?: No Do you have trouble getting transportation to medical appointments?: No Do you have trouble paying your heating and electricity bill?: No Do you have trouble taking care of your child, family member or friend?: No Do you have trouble with day-to-day activities such as bathing, preparing meals, shopping, managing finances, etc.?: No Are you currently unemployed and looking for a job?: No Are you interested in more education?: No SAMINA-7 AMB Questionnaire SAMINA-7 Date SAMINA - 7 assessed: 08/20/23 Feeling nervous, anxious, or on edge: 0 = Not at all Not being able to stop or control worryin = Not at all Worrying too much about different things: 0 = Not at all Trouble relaxin = Not at all Being so restless that it is hard to sit still: 0 = Not at all Becoming easily annoyed or irritable: 0 = Not at all Feeling afraid as if something awful might happen: 0 = Not at all Total SAMINA-7 score (0-4 normal; 5-9 mild; 10-14 moderate; 15-21 severe): 0 Source: Developed by Drs. Jose Sauceda, Silvia Hay, Feng Julian and colleagues, with an educational hardik from [employer]. SAMINA-7 Assessment Billing SAMINA-7 Assessment Tool: SAMINA-7 Assessment 50608 Review of Systems Const Denies chills and Denies fever(s) ENT Denies epistaxis and Denies nasal discharge Card Denies chest pain Resp Denies chest congestion, Denies cough and Denies hemoptysis GI Denies diarrhea and Denies nausea Skin/Breast Denies rash Neuro Reports no additional complaints Psych Reports no additional complaints Endo Reports no additional complaints Physical exam (Primary Care) Vital Signs: Last Vital Signs Pulse 77 08/20/23 12:52 BP 120/58 L 08/20/23 12:52 Pulse Ox 95 08/20/23 12:52 Oxygen Delivery Method Room Air 08/20/23 12:52 BMI result Body Mass Index 37.4 Tobacco/Smoking Status: Tobacco use Status Tobacco use date assessed 05/15/23 08/20/23 12:57 Patient Tobacco Use Status Former Tobacco user 08/20/23 12:57 e-Cigarette/Vaping Use Never Used 08/20/23 12:57 PHQ-9: PHQ-9 Score PHQ-9: Total score 4 08/20/23 13:08 Depression Screening Interpretation: Negative Thrive Assessment: Date of Thrive Assessment Date Thrive assessed 08/20/23 08/20/23 13:08 Const General: cooperative, comfortable and no acute distress Orientation/consciousness: patient oriented x3 HENMT Head: Yes normocephalic Eyes General: appearance normal, both eyes and all related structures Neck Neck: Yes supple Resp Effort & Inspection: normal respiratory effort, no cough and no stridor Cardio Rhythm: regular rhythm Heart sounds: S1 normal heart sound present and S2 normal heart sound present Skin General skin exam: turgor normal Neuro General: patient oriented x3, tone normal and moves all extremities Assessment and Plan Assessment & Plan (1) Diabetes 1.5, managed as type 1: Code(s): E13.9 - Other specified diabetes mellitus without complications (2) Dementia: Code(s): F03.90 - Unspecified dementia, unspecified severity, without behavioral disturbance, psychotic disturbance, mood disturbance, and anxiety Qualifiers: Alzheimer's disease onset: late onset Dementia behavioral or psychological symptom: unspecified whether behavioral, psychotic, or mood disturbance or anxiety Dementia severity: mild Dementia type: Alzheimer's Qualified Code(s): G30.1 - Alzheimer's disease with late onset; F02.A0 - Dementia in other diseases classified elsewhere, mild, without behavioral disturbance, psychotic disturbance, mood disturbance, and anxiety (3) Diabetic neuropathy: Code(s): E11.40 - Type 2 diabetes mellitus with diabetic neuropathy, unspecified Qualifiers: Diabetes mellitus complication detail: diabetic polyneuropathy Diabetes mellitus type: type 1 Qualified Code(s): E10.42 - Type 1 diabetes mellitus with diabetic polyneuropathy (4) COPD (chronic obstructive pulmonary disease): Code(s): J44.9 - Chronic obstructive pulmonary disease, unspecified Qualifiers: COPD type: emphysema Emphysema type: panlobular Qualified Code(s): J43.1 - Panlobular emphysema (5) Lipid disorder: Code(s): E78.9 - Disorder of lipoprotein metabolism, unspecified (6) Benign prostatic hyperplasia: Code(s): N40.0 - Benign prostatic hyperplasia without lower urinary tract symptoms Qualifiers: Lower urinary tract symptom detail: nocturia Lower urinary tract symptom presence: symptoms present Qualified Code(s): N40.1 - Benign prostatic hyperplasia with lower urinary tract symptoms; R35.1 - Nocturia (7) Other specified hypothyroidism: Code(s): E03.8 - Other specified hypothyroidism (8) Obesity due to excess calories: Code(s): E66.09 - Other obesity due to excess calories Qualifiers: Body mass index: BMI 37.0-37.9 Obesity classification: adult class 2 (BMI 35 - 39.9) Serious obesity comorbidity presence: with serious comorbidity Qualified Code(s): E66.01 - Morbid (severe) obesity due to excess calories; Z68.37 - Body mass index [BMI] 37.0-37.9, adult Plan Patient is 88-year-old gentleman came in today for his regular follow-up appointment We have a professional fuel quality tech present today as patient speaks only Hebrew Diabetes mellitus: he is on Trulicity and glipizide along with Actos 15 mg and Farxiga hemoglobin A1c is controlled patient is tolerating medication. Last time he had labs done was February of this year his hemoglobin A1c was 6.9, patient was supposed to have labs before this visit but he did not. He will be having them today diabetic neuropathy : he is on gabapentin 300 mg at night Patient also have history of skin cancer and is currently seeing a director of agronomy. History of dementia, patient is now seeing neurology in taking medications through them Dr. Duarte Hypothyroidism: Patient is taking levothyroxine 88 mcg, TSH stable Blood pressure is stable continue losartan 100 mg and amlodipine 10 mg Patient is also on atorvastatin 40 mg for lipid control Tamsulosin for prostate COPD: History of smoking for years currently taking Incruse Ellipta with good control of symptoms BMI is elevated having difficulty losing weight Continued to have back pain , patient is now seeing pain management for that He has appointment for follow-up in November Medications: New dapagliflozin propanediol (Farxiga) 10 mg PO DAILY 90 tabs 0RF Refilled amlodipine 10 mg PO DAILY 90 tabs 0RF atorvastatin 40 mg PO DAILY 90 tabs 0RF gabapentin 300 mg PO BEDTIME 90 caps 0RF glipizide 10 mg PO DAILY 90 tabs 0RF losartan 100 mg PO DAILY 90 tabs 0RF aspirin 81 mg PO DAILY 90 tabs 0RF dulaglutide (Trulicity) 4.5 mg (0.5 mL) subcut QWEEK 6.5 mL 0RF 90 days levothyroxine 88 mcg PO DAILY 90 tabs 0RF pioglitazone 15 mg PO DAILY 90 tabs 0RF tamsulosin 0.4 mg PO BEDTIME 90 caps 0RF umeclidinium 62.5 mcg/actuation (Incruse Ellipta) 1 inh inhalation DAILY 30 ea 1RF Coding Level of Care Code Est Pt Level 5 (93061) Diagnoses Diabetes 1.5, managed as type 1 E13.9 Mild late onset Alzheimer's dementia, unspecified whether behavioral, psychotic, or mood disturbance or anxiety G30.1; F02.A0 Alzheimer's disease onset: late onset Dementia behavioral or psychological symptom: unspecified whether behavioral, psychotic, or mood disturbance or anxiety Dementia severity: mild Dementia type: Alzheimer's 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 E10.42 Diabetes mellitus complication detail: diabetic polyneuropathy Diabetes mellitus type: type 1 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 Lipid disorder E78.9 Benign prostatic hyperplasia with nocturia N40.1; R35.1 Lower urinary tract symptom detail: nocturia Lower urinary tract symptom presence: symptoms present Other specified hypothyroidism E03.8 Class 2 severe obesity due to excess calories with serious comorbidity and body mass index (BMI) of 37.0 to 37.9 in adult E66.01; Z68.37 Body mass index: BMI 37.0-37.9 Obesity classification: adult class 2 (BMI 35 - 39.9) Serious obesity comorbidity presence: with serious comorbidity Additional Codes SAMINA-7 Assessment Billing - SAMINA-7 Assessment Tool: SAMINA-7 Assessment 83997 ([id number]) Time Spent (min) 45 Comment 10 prep, 25 with patient, 10 charting coordination of care
[2023-08-20 12:52] VITALS: BP 120/58; PULSE 77; O2SAT 95; BMI 37.4
== END 2023-08-20 13:59 | disposition home or self-care (01) ==
PROVIDERS: PCP Internal Medicine; Visit Provider Internal Medicine
DX: G30.1 Alzheimer's disease with late onset (principal); F02.A0 Dementia in other diseases classified elsewhere, mild, without behavioral disturbance, psychotic disturbance, mood disturbance, and anxiety; E10.42 Type 1 diabetes mellitus with diabetic polyneuropathy; J43.1 Panlobular emphysema; E66.01 Morbid (severe) obesity due to excess calories; Z68.37 Body mass index [BMI] 37.0-37.9, adult; E78.9 Disorder of lipoprotein metabolism, unspecified; N40.1 Benign prostatic hyperplasia with lower urinary tract symptoms; R35.1 Nocturia; E03.8 Other specified hypothyroidism
CPT/HCPCS: 99215

== ENCOUNTER 2023-08-20 13:15 | Outpatient (REF) | payer OTHER, SELFPAY ==
[2023-08-20 16:31] LABS: Estimated Average Glucose 148 mg/dL; Hemoglobin A1c % 6.8 % (<6.0)
[2023-08-20 16:45] LABS: Alanine Aminotransferase 45 U/L (0-40); Albumin Level 3.9 g/dL (3.5-5.0); Alkaline Phosphatase 169 U/L (39-117); Anion Gap 15 (12-20); Aspartate Amino Transferase 40 U/L (5-37); Bilirubin Total 0.6 mg/dL (0.0-1.0); Blood Urea Nitrogen 25 mg/dL (9-16); Calcium 9.3 mg/dL (8.4-10.2); Carbon Dioxide 24 mmol/L (22-29); Chloride 104 mmol/L (96-108); Estimated Glomerular Filt Rate 59; Glucose Random 116 mg/dL (60-115); Potassium 4.6 mmol/L (3.3-5.1); Sodium 138 mmol/L (135-145); Total Protein 7.3 g/dL (6.5-8.0)
[2023-08-20 16:50] LABS: Microalbum/Creatinine Ratio Ur 54.4 ug/mg cr (<30)
[2023-08-20 17:00] LABS: Prostate Specific Antigen 0.62 ng/mL (<0.05-4.0)
[2023-08-20 17:01] LABS: TSH reflex Free T4 2.19 uIU/mL (0.32-4.0)
[2023-08-21 10:47] LABS: LDL Cholesterol Direct 48 mg/dL (<100)
== END 2023-08-20 13:16 | disposition home or self-care (01) ==
LOC: HO.HMGCLDS 13:15
PROVIDERS: PCP Internal Medicine; Visit Provider Internal Medicine
DX: J44.9 Chronic obstructive pulmonary disease, unspecified (principal); E11.40 Type 2 diabetes mellitus with diabetic neuropathy, unspecified; F03.90 Unspecified dementia, unspecified severity, without behavioral disturbance, psychotic disturbance, mood disturbance, and anxiety; E78.9 Disorder of lipoprotein metabolism, unspecified; N40.0 Benign prostatic hyperplasia without lower urinary tract symptoms; E03.8 Other specified hypothyroidism; E66.09 Other obesity due to excess calories; M25.551 Pain in right hip; Z12.5 Encounter for screening for malignant neoplasm of prostate
CPT/HCPCS: 36415; 80053; 82043; 82570; 83036; 83721; 84153; 84443

== ENCOUNTER 2023-09-04 10:18 | Outpatient (REF) | payer OTHER, SELFPAY ==
--- NOTE | ~2023-09-04 | MR_ITS ---
EXAMINATION: MR LUMBAR SPINE WITHOUT CONTRAST CLINICAL INFORMATION: Spondylosis without myelopathy or radiculopathy, lumbar region. COMPARISON: Lumbar spine radiographs on 06/19/2023 TECHNIQUE: MRI of the lumbar spine was obtained using routine sequences without contrast. FINDINGS: Straightening of the normal lumbar lordosis. Grade 1 anterolisthesis at L5-S1. Chronic bilateral L4 pars defects. Acute endplate changes at L4-5 and L5-S1. Otherwise, heterogeneous bone marrow signal is likely degenerative. Acute Schmorl's node at T12 superior endplate. The vertebral body heights are preserved. Multilevel disc desiccation without significant disc height loss. Multilevel endplate osteophytosis. The visualized spinal cord is normal in caliber. No abnormal cord signal. The conus medullaris terminates at L2. T12-L1: No significant spinal canal or neural foraminal narrowing. L1-2: Prominent dorsal epidural fat. No significant spinal canal or neural foraminal narrowing. L2-3: Small central disc protrusion. Annular fissure and prominent dorsal epidural fat. No significant spinal canal or neural foraminal narrowing. L3-4: Prominent dorsal epidural fat. No significant spinal canal or neural foraminal narrowing. L4-5: Prominent ventral and dorsal epidural fat. Diffuse disc bulge. Severe spinal canal stenosis with impingement of the cauda equina nerve roots. Severe right and mild to moderate left neural foraminal narrowing with mass effect on the right exiting L4 nerve roots. L5-S1: Prominent dorsal and ventral epidural fat. Diffuse disc bulge and bilateral facet arthrosis with small right facet joint effusion. Mild to moderate spinal canal stenosis. Moderate to severe left and mild right neural foraminal narrowing with mass effect on the left exiting L5 nerve roots. The paravertebral soft tissues are unremarkable. Bilateral renal cysts. 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 There is also mild to moderate L5-S1 spinal canal stenosis and moderate to severe left neural foraminal narrowing with mass effect on the left exiting L5 nerve roots. -Chronic bilateral L4 pars defects.
== END 2023-09-04 10:19 | disposition home or self-care (01) ==
LOC: HO.MRI 10:18
PROVIDERS: PCP Internal Medicine; Visit Provider Nurse Practitioner Family
DX: M47.816 Spondylosis without myelopathy or radiculopathy, lumbar region (principal); M54.16 Radiculopathy, lumbar region; M43.10 Spondylolisthesis, site unspecified
CPT/HCPCS: 72148

== ENCOUNTER 2023-09-20 13:35 | Outpatient (AMB) | payer OTHER, SELFPAY ==
[2023-09-20 13:43] VITALS: BP 148/69; PULSE 74; RESP 16; O2SAT 95; BMI 37.3
--- NOTE | 2023-09-20 13:43 | A.OFFVIS_ITS ---
Intake Vital Signs 09/20/23 13:43 09/20/23 14:16 09/20/23 14:39 Height 5 ft 7 in Weight 238 lb 4 oz BMI 37.3 BP 148/69 H 128/62 126/86 Blood Pressure Location Lt brachial Lt brachial Lt brachial Position Sitting Sitting Sitting Respiration 16 Pulse 74 71 78 Pulse Source Pulse Oximeter Pulse Oximeter Pulse Oximeter Pulse Oximetry (%) 95 96 96 Oxygen Delivery Method Room Air Room Air Room Air Intake Visit Reasons: Qutenza-DN/ MRI results/confirmed Allergies No Known Allergies Allergy (Verified 09/20/23 13:43) HPI HPI Comments History of Present Illness Details Poncho is a very pleasant 88 year old male who presents to the office today for second application of 8% Capsaicin topical to both feet for peripheral neuropathy. He is accompanied by a Medical Sharepoint Admin. Patient reports he tolerated the last application well. He denies any changes since last visit. Has appt next month with Neurosurgery, MRI results reviewed w ith patient today. EMLA cream was applied at home prior to the visit. Prior: Patient is a pleasant 88 years old Kazakh speaking male presents for application of capsaicin 8% topical patch for peripheral neuropathy in bilateral feet. He is accompanied by Medical Sharepoint Admin. Patient reports he applied EMLA cream to both of his feet after washing them prior to this visit. Denies any recent cough, cold, infection, fever or other significant changes in medical history since last office visit. Lumbar spine xray results were reviewed with patient today in greater lengths and noted for muscle spasm, severe degenerative disc disease at L4-L5, Grade 1 anterolisthesis of L5 on S1 and question of L4 pars defect. He endorses low back pain with walking or bending, changing positions. Pain is axial and also radiates into his left lower extremity laterally and posteriorly with numbness and tingling. Reports burning, aching and tingling pain in both feet related to diabetic neuropathy. Patient reports lidocaine patches with minimal effect to his left back to left abdomen pain related to PHN. Gabapentin provides him partial pain control. He is interested to undergo lumbar spine MRI for potential therapeutic back injections to alleviate his radicular symptoms. Denies any abdominal or groin pain, bladder or bowel incontinence or saddle anesthesia. PRIOR 06/06/23 Cely Corona PAINTER SKI EDGE: Poncho is a very pleasant 88 year old male who presents to the office today with his for evaluation and management of his left lower back pain. Patient recently evaluated by orthopedics for hip pain which has since resolved after PT. Today he complains of left lower back pain that radiates around to LLQ abdomen. He describes the pain as hot, burning, constant and severe. Area is non tender to palpation. He does take gabapentin for diabetic neuropathy but does not notice any benefit of pain relief to this area. Pain started around 2 months ago and persists. He denies inciting injury, has never had a rash in that area. Patient received 2 doses of shingles vaccines in the past. He is taking tylenol 650mg with some relief. He has not tried any topical medications, ice or heat for the pain. Patient is diabetic and complains of burning, pins and needles to both feet. At times the pain gets so severe he will have to bang them on the floor. Gabapentin is prescribed for the pain and helps some but he only takes it once daily. Most recent A1c was 6.9 on 02/12/2023. In terms of muscle damage condition is described as hot, burning, stabbing, sharp, tingling, pins and needles. Pain is negatively impacting his mood, mobility and general activity. [facility] Medical History Obstructive sleep apnea Lumbar radicular pain Loss of taste Hip pain, right Obesity due to excess calories Other specified hypothyroidism History of skin cancer Benign prostatic hyperplasia Lipid disorder Dementia Diabetic neuropathy COPD (chronic obstructive pulmonary disease) Diabetes 1.5, managed as type 1 Family History Daughter Breast cancer Social History Housing: House Patient Tobacco Use Status: Former Tobacco user e-Cigarette/Vaping Use: Never Used service: No Current occupational status: retired Cognitive needs: No Hearing needs: No Vision needs: Yes Review of Systems Const All systems reviewed & are unremarkable except as noted in HPI and below Physical Exam Vital Signs: Last Vital Signs Pulse 74 09/20/23 13:43 Resp 16 09/20/23 13:43 BP 148/69 H 09/20/23 13:43 Pulse Ox 95 09/20/23 13:43 Oxygen Delivery Method Room Air 09/20/23 13:43 BMI result Body Mass Index 37.3 General: awake, alert. Answers questions appropriately. Fully engaged in examination. Skin: Decreased sensation palmar surface feet bilaterally. No bruising, rashes, wounds or open areas noted to either foot. No soft tissue swelling or warmth. +2 pedal pulses bilaterally. HEENT: Normocephalic. . Hearing intact. Cardiac: External chest normal in appearance. Respiratory: No signs of trauma. No signs of respiratory distress. No cough, audible wheezing or stridor. Abdomen: without gross distension. MS: No obvious swelling or deformities. Able to transition from sit to stand unassisted. Neurological: Oriented to person, place, time and situation. Thought process intact. No gait abnormalities appreciated. Psychiatric: Appropriate mood and affect. Good judgment and insight. Office Meds capsaicin-skin cleanser 8 % topical kit Performing Provider: Cely Corona APRN, CNP [place]forming [place] [facility] Administered by: Cely Corona APRN, CNP on 09/20/23 14:04 Dose Route Admin Location Dispensed Lot Number Expiration Date [facility] [place] Slip Mixer 2 ea topical 2 ea [id number] 11/04/25 03429-462-37 [facility] Comments: Comments: Patient applied topical EMLA cream to both feet prior to arrival for his scheduled appointment. Feet exposed, no wounds, rashes or breaks in skin noted. Decreased light touch sensation bilaterally. Four single use topical patches (179mg capsaicin) divided between feet, 2 patches per foot, wrapped and secured per package instructions. Patient monitored throughout the procedure with BP checks every 15 minutes. He tolerated the 30 minute application well. Post procedure patches were removed and neutralizing gel was applied to both feet. Results Reviewed Results Reviewed: 09/04/2023 MRI LS FINDINGS: Straightening of the normal lumbar lordosis. Grade 1 anterolisthesis at L5-S1. Chronic bilateral L4 pars defects. Acute endplate changes at L4-5 and L5-S1. Otherwise, heterogeneous bone marrow signal is likely degenerative. Acute Schmorl's node at T12 superior endplate. The vertebral body heights are preserved. Multilevel disc desiccation without significant disc height loss. Multilevel endplate osteophytosis. The visualized spinal cord is normal in caliber. No abnormal cord signal. The conus medullaris terminates at L2. T12-L1: No significant spinal canal or neural foraminal narrowing. L1-2: Prominent dorsal epidural fat. No significant spinal canal or neural foraminal narrowing. L2-3: Small central disc protrusion. Annular fissure and prominent dorsal epidural fat. No significant spinal canal or neural foraminal narrowing. L3-4: Prominent dorsal epidural fat. No significant spinal canal or neural foraminal narrowing. L4-5: Prominent ventral and dorsal epidural fat. Diffuse disc bulge. Severe spinal canal stenosis with impingement of the cauda equina nerve roots. Severe right and mild to moderate left neural foraminal narrowing with mass effect on the right exiting L4 nerve roots. L5-S1: Prominent dorsal and ventral epidural fat. Diffuse disc bulge and bilateral facet arthrosis with small right facet joint effusion. Mild to moderate spinal canal stenosis. Moderate to severe left and mild right neural foraminal narrowing with mass effect on the left exiting L5 nerve roots. The paravertebral soft tissues are unremarkable. Bilateral renal cysts. 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 There is also mild to moderate L5-S1 spinal canal stenosis and moderate to severe left neural foraminal narrowing with mass effect on the left exiting L5 nerve roots. Chronic bilateral L4 pars defects. Assessment & Plan Assessment & Plan (1) Diabetic neuropathy: Code(s): E11.40 - Type 2 diabetes mellitus with diabetic neuropathy, unspecified Qualifiers: Diabetes mellitus type: type 1 Diabetes mellitus complication detail: diabetic polyneuropathy Qualified Code(s): E10.42 - Type 1 diabetes mellitus with diabetic polyneuropathy (2) Facet arthritis of lumbar region: Code(s): M47.816 - Spondylosis without myelopathy or radiculopathy, lumbar region (3) Lumbar radicular pain: Code(s): M54.16 - Radiculopathy, lumbar region (4) Pars defect with spondylolisthesis: Code(s): M43.10 - Spondylolisthesis, site unspecified Plan Poncho presented to the office today for follow up bilateral peripheral neuropathy and his 2nd Capsaicin 8% topical application. Patient tolerated Qutenza application well. BP monitored throughout treatment with no significant elevations. MRI reviewed with patient, he will follow up with neurosurgery as planned. All questions and concerns have been answered and patient agrees with the plan. Patient will follow up here for next Qutenza application, sooner if needed. Greater than 45 minutes were spent performing pre/post skin assessment, reviewing records, coordinating care, updating the medical record and providing pre/post procedure patient education. Orders: Orders AMB Capsaicin Patch - Practice Supplied Today E11.40 - Type 2 diabetes mellitus with diabetic neuropathy, unspecified Coding Level of Care Code Est Pt Level 4 (06569) Diagnoses 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 E10.42 Diabetes mellitus type: type 1 Diabetes mellitus complication detail: diabetic polyneuropathy Facet arthritis of lumbar region M47.816 Lumbar radicular pain M54.16 Pars defect with spondylolisthesis M43.10
[2023-09-20 14:16] VITALS: BP 128/62; PULSE 71; O2SAT 96
[2023-09-20 14:39] VITALS: BP 126/86; PULSE 78; O2SAT 96
== END 2023-09-20 14:36 | disposition home or self-care (01) ==
PROVIDERS: PCP Internal Medicine; Visit Provider Registered Nurse Emergency
DX: M47.816 Spondylosis without myelopathy or radiculopathy, lumbar region (principal); M54.16 Radiculopathy, lumbar region; M43.10 Spondylolisthesis, site unspecified; E11.40 Type 2 diabetes mellitus with diabetic neuropathy, unspecified
CPT/HCPCS: 17999; 99214

== ENCOUNTER → 2023-09-20 13:35 | Outpatient (BNVA) | payer OTHER, SELFPAY | PROVIDERS: PCP Internal Medicine; Visit Provider Registered Nurse Emergency | DX: E10.42 Type 1 diabetes mellitus with diabetic polyneuropathy (principal); M47.816 Spondylosis without myelopathy or radiculopathy, lumbar region; M54.16 Radiculopathy, lumbar region; M43.10 Spondylolisthesis, site unspecified | CPT/HCPCS: 17999; 99212; J7336 ==

== ENCOUNTER 2023-09-30 12:11 | Outpatient (AMB) | payer OTHER, SELFPAY ==
--- NOTE | 2023-09-30 12:14 | MHC.OFFVIS ---
Intake Vital Signs 09/30/23 12:17 Height 5 ft 7 in Weight 243 lb 6 oz BMI 38.1 BP 136/80 Blood Pressure Location Lt brachial Pulse 102 H Pulse Source Pulse Oximeter Pulse Oximetry (%) 97 Oxygen Delivery Method Room Air Intake Visit Reasons: 3 mo Follow up for Dementia Dimensional Integration Engineer Required: Yes Dimensional Integration Engineer Name: Alec [id number] Allergies No Known Allergies Allergy (Verified 09/30/23 12:18) HPI HPI Comments History of Present Illness Details 88y/o male comes for follow up of cognitive difficulties. conference interpreter, Alec Jonas ID #[id number] utilized. He has been having some memory issues for 30 years but for past 1 year it has worsened.He has short term memory issues, forgets conversations, misplaces things, confused with people, time, place etc. He needs help with his daily hygiene. He denies hallucination, delusions. He was on memantine 7 mg, but did not have refill and did not take it for a while. He has sleep apnea on CPAP (it is more than 10 years old), uses nightly. Home sleep study was ordered to assess sleep apnea. However, patient could not follow the instruction for the home sleep study. [facility] Medical History Obstructive sleep apnea Lumbar radicular pain Loss of taste Hip pain, right Obesity due to excess calories Other specified hypothyroidism History of skin cancer Benign prostatic hyperplasia Lipid disorder Dementia Diabetic neuropathy COPD (chronic obstructive pulmonary disease) Diabetes 1.5, managed as type 1 Family History Daughter Breast cancer Social History Housing: House Patient Tobacco Use Status: Former Tobacco user e-Cigarette/Vaping Use: Never Used service: No Current occupational status: retired Cognitive needs: No Hearing needs: No Vision needs: Yes Review of Systems Const All systems reviewed & are unremarkable except as noted in HPI and below Neuro Reports confusion Psych Reports confusion Physical Exam Vital Signs: Last Vital Signs Pulse 102 H 09/30/23 12:17 BP 136/80 09/30/23 12:17 Pulse Ox 97 09/30/23 12:17 Oxygen Delivery Method Room Air 09/30/23 12:17 BMI result Body Mass Index 38.1 Const General: cooperative, healthy appearing, comfortable, no acute distress and confusion Nutritional Appearance: obese Orientation/consciousness: confusion Eyes Pupils: Equal, round and reactive pupils present Neuro Other: mild left facail droop General: tone normal, moves all extremities, no focal motor deficits and confusion Cranial nerves: Yes Equal, round and reactive pupils present, Yes Bilaterally intact EOM present, Yes Nystagmus not present, Yes Midline tongue present, Yes Symmetric palate elevation present and Yes Ability to bilaterally elevate shoulders present Cognition (Neuro): abnormal cognition Gait exam (Neuro): Antalgic gait present Deep tendon reflexes (DTR's): Right triceps reflex intensity grade: 2+, Left triceps reflex intensity grade: 2+, Rt Biceps (C5, C6): 2+, Left biceps reflex intensity grade: 2+, Right brachioradialis reflex intensity grade: 2+, Left brachioradialis reflex intensity grade: 2+, Right patellar reflex intensity grade: 2+ and Left patellar reflex intensity grade: 2+ Coordination: [id number] test normal Assessment & Plan Assessment & Plan (1) Dementia: Code(s): F03.90 - Unspecified dementia, unspecified severity, without behavioral disturbance, psychotic disturbance, mood disturbance, and anxiety Qualifiers: Alzheimer's disease onset: late onset Dementia behavioral or psychological symptom: unspecified whether behavioral, psychotic, or mood disturbance or anxiety Dementia severity: mild Dementia type: Alzheimer's Qualified Code(s): G30.1 - Alzheimer's disease with late onset; F02.A0 - Dementia in other diseases classified elsewhere, mild, without behavioral disturbance, psychotic disturbance, mood disturbance, and anxiety (2) Obstructive sleep apnea: Code(s): G47.33 - Obstructive sleep apnea (adult) (pediatric) Plan Advised patient to undergo in-lab sleep test to revaluate his sleep apnea. Labs reviewed. Will restart memantine 7 mg daily. Advised patient to increase daily physical and cognitive activities. Orders: Orders RT PSG in-lab sleep study 09/30/23 E13.9 - Other specified diabetes mellitus without complications, F03.90 - Unspecified dementia, unspecified severity, without behavioral disturbance, psychotic disturbance, mood disturbance, and anxiety, G47.33 - Obstructive sleep apnea (adult) (pediatric), J44.9 - Chronic obstructive pulmonary disease, unspecified Medications: Refilled memantine 7 mg PO DAILY 30 ea 2RF Coding Level of Care Code Est Pt Level 4 (79676) Diagnoses Mild late onset Alzheimer's dementia, unspecified whether behavioral, psychotic, or mood disturbance or anxiety G30.1; F02.A0 Alzheimer's disease onset: late onset Dementia behavioral or psychological symptom: unspecified whether behavioral, psychotic, or mood disturbance or anxiety Dementia severity: mild Dementia type: Alzheimer's Obstructive sleep apnea G47.33
[2023-09-30 12:17] VITALS: BP 136/80; PULSE 102; O2SAT 97; BMI 38.1
== END 2023-09-30 12:54 | disposition home or self-care (01) ==
PROVIDERS: PCP Internal Medicine; Visit Provider Nurse Practitioner Family
DX: G30.1 Alzheimer's disease with late onset (principal); F02.A0 Dementia in other diseases classified elsewhere, mild, without behavioral disturbance, psychotic disturbance, mood disturbance, and anxiety; G47.33 Obstructive sleep apnea (adult) (pediatric)
CPT/HCPCS: 99214

== ENCOUNTER → 2023-09-30 12:11 | Outpatient (BNVA) | payer OTHER, SELFPAY | PROVIDERS: PCP Internal Medicine; Visit Provider Nurse Practitioner Family | DX: G30.1 Alzheimer's disease with late onset (principal); F02.A0 Dementia in other diseases classified elsewhere, mild, without behavioral disturbance, psychotic disturbance, mood disturbance, and anxiety; G47.33 Obstructive sleep apnea (adult) (pediatric); Z99.89 Dependence on other enabling machines and devices | CPT/HCPCS: 99212 ==

== ENCOUNTER 2023-10-11 10:45 | Outpatient (AMB) | payer OTHER, SELFPAY ==
--- NOTE | 2023-10-11 11:07 | A.SPINEOV_ITS ---
Intake Intake Visit Reasons: low back pain Intake Note: Mr. Lao is here today c/o low back pain. MRI done @ [facility] [place]. Computer Forensic Specialist Required: Yes Computer Forensic Specialist Name: Janessa Reed No Known Allergies Allergy (Verified 09/30/23 12:18) Assessment & Plan Assessment & Plan (1) Lumbar spinal stenosis: Code(s): M48.061 - Spinal stenosis, lumbar region without neurogenic claudication (2) Pars defect with spondylolisthesis: Code(s): M43.10 - Spondylolisthesis, site unspecified Plan Dear Leia, Thank you for referring Mr Lao to our office today. He is a very nice 88-year-old B[place]ian-speaking gentleman who presents for evaluation of a chronic low back pain that he has had for many years. He is here with his personal sap hana developer Carmen was helping with today's visit. It can go down into his legs but primarily it is just the back pain. It does get aggravated few standing and moving around but in general it some mild discomfort there really does not keep him from most of his daily activities. He will take aspirin from time to time if the pain flares up. He tried some physical therapy and thought that that helped. He has not had any injections yet. He had a lumbar MRI done showing significant arthritis and was sent today for evaluation. He is not interested in surgery. PMH: He is diabetic but a relatively decent A1c around 6, history of high cholesterol, hypertension, dementia, COPD, BPH, skin cancer Social hx: He does not smoke Medications: Baby aspirin, amlodipine, Lipitor, Farxiga, Trulicity, gabapentin, galantamine, glipizide, lidocaine patches, losartan, memantine, Flomax Allergies: None Physical exam: He is awake alert oriented no acute distress, she is here with his sap hana developer today. He has full strength of bilateral lower extremities with absent reflexes bilaterally. Imaging review: He has transitional anatomy. He has a lumbar MRI and x-ray done at [place] showing pars defects at L4 was severely collapsed disc, I think it may be auto fused, or have a subtotal fusion in the anterior portion of the disc space. There is foraminal stenosis at this level. There is mention of epidural lipomatosis causing severe stenosis. There is some disc degeneration at the L5-S1 level as well. Impression: 88-year-old gentleman presenting for evaluation of a chronic low back pain which he describes as mild to moderate, does not limit his quality of life or any of the activities that he enjoys doing. He has some very subtle radiculopathy symptoms but nothing that really bothers him. He has is very severely arthritic disc at L4-5 secondary to degeneration, probably related to the bony pars defects we see on the x-rays. I think it is for the most part starting to fuse if not already fused on its own. He has other varying degrees of arthritis in his lumbar spine. All these things together certainly could explain his back pain. There is mention of severe stenosis secondary to epidural lipomatosis but that is rarely ever symptomatic and I do not see it as part of his current issue. He is not really interested in surgery for his back pain, and at his age that would be a fairly extensive undertaking so that seems very reasonable. All in all I think this would be best treated with medicines and possibly injections if his blood sugars can tolerate it. Thank you for allowing us to care for your patient. The total time spent with this visit with this patient was 45 minutes reviewing history, physical exam, lumbar imaging review, and implementation of treatment plan or further diagnostic testing Vahe Allen MD,PhD [facility] Coding Level of Care Code New Pt Level 4 (33786) Diagnoses Lumbar spinal stenosis M48.061 Pars defect with spondylolisthesis M43.10
== END 2023-10-11 11:51 | disposition home or self-care (01) ==
PROVIDERS: PCP Internal Medicine; Referring Provider Nurse Practitioner Family; Visit Provider Physician Assistant
DX: M48.061 Spinal stenosis, lumbar region without neurogenic claudication (principal); M43.10 Spondylolisthesis, site unspecified
CPT/HCPCS: 99204

== ENCOUNTER → 2023-10-11 10:45 | Outpatient (BNVA) | payer OTHER, SELFPAY | PROVIDERS: PCP Internal Medicine; Referring Provider Nurse Practitioner Family; Visit Provider Physician Assistant | DX: M48.061 Spinal stenosis, lumbar region without neurogenic claudication (principal); M43.10 Spondylolisthesis, site unspecified | CPT/HCPCS: 99202 ==

== ENCOUNTER → 2023-10-18 19:30 | Outpatient (REF) | payer OTHER, SELFPAY | LOC: HO.SL 19:30 | PROVIDERS: PCP Internal Medicine; Visit Provider Nurse Practitioner Family | DX: G47.33 Obstructive sleep apnea (adult) (pediatric) (principal); J44.9 Chronic obstructive pulmonary disease, unspecified | CPT/HCPCS: 95810 ==

== ENCOUNTER → 2023-10-19 05:45 | Outpatient (BNV) | payer OTHER, SELFPAY | PROVIDERS: PCP Internal Medicine; Visit Provider Psychiatry & Neurology Neurology | DX: G47.33 Obstructive sleep apnea (adult) (pediatric) (principal); G47.61 Periodic limb movement disorder | CPT/HCPCS: 95810 ==

== ENCOUNTER 2023-11-22 12:46 | Outpatient (AMB) | payer OTHER, SELFPAY ==
[2023-11-22 12:48] VITALS: BP 130/80; BMI 37.7
--- NOTE | 2023-11-22 12:48 | A.OFFPC_ITS ---
Vital Signs 11/22/23 12:48 Height 5 ft 7 in Weight 241 lb BMI 37.7 BP 130/80 Blood Pressure Location Lt brachial Position Sitting Intake Visit Reasons: 6 Month Follow Up Allergies No Known Allergies Allergy (Verified 11/22/23 12:49) Medication List - Last Reconciled 11/22/23 by Leonardo Wynn MD amlodipine 10 mg PO DAILY aspirin 81 mg PO DAILY atorvastatin 40 mg PO DAILY blood sugar diagnostic ([employer] Verio test strips) Test blood sugar once a day blood-glucose meter ([employer] Verio Flex Meter) Once a day carbamide peroxide 6.5% (Debrox) 5 drps otic (ears) DAILY 4 days dapagliflozin propanediol (Farxiga) 10 mg PO DAILY dulaglutide (Trulicity) 4.5 mg (0.5 mL) subcut QWEEK 90 days gabapentin 300 mg PO BEDTIME galantamine ER 24 mg PO DAILY 90 days glipizide 10 mg PO DAILY lancets ([employer]Touch Delica Plus Lancet) test blood sugar once a day levothyroxine 88 mcg PO DAILY lidocaine 5% 1 patch topical DAILY PRN lidocaine-prilocaine 2.5-2.5 % 1 appl topical ONCE losartan 100 mg PO DAILY memantine 7 mg PO DAILY pioglitazone 15 mg PO DAILY tamsulosin 0.4 mg PO BEDTIME umeclidinium 62.5 mcg/actuation (Incruse Ellipta) 1 inh inhalation DAILY vit C,T-Et-pdrsk-lutein-zeaxan 250-90-40-1 mg (PreserVision AREDS-2) 1 cap PO BID Tobacco use date assessed: 11/22/23 Fall risk assessment: No Falls in past year Last assessed Fall Risk: 11/22/23 Dental Screening Dental Screen Date: 11/22/23 Did you have a dental visit in the last 12 months?: Yes Did you have a dental problem in the last 6 months where you did not have access to dental care?: No Was dental information given to patient?: Patient has dentist HPI 6 Month Follow Up HPI Details Patient is 88-year-old gentleman came in today for his regular follow- up appointment We have a professional fire information officer present today as patient speaks only [place] Sleep apnea: Patient is seeing Neurology, and has appointment coming up in December, he had a sleep study done recently which confirmed sleep apnea Diabetes mellitus: he is on Trulicity and glipizide along with Actos 15 mg and Farxiga , hemoglobin A1c is controlled patient is tolerating medication. diabetic neuropathy : he is on gabapentin 300 mg at night Patient also have history of skin cancer and is currently seeing a tax examining technician. Alzheimer's dementia, management through neurology Dr. Duarte Hypothyroidism: Patient is taking levothyroxine 88 mcg, TSH stable Blood pressure is stable continue losartan 100 mg and amlodipine 10 mg Patient is also on atorvastatin 40 mg for lipid control Tamsulosin for prostate COPD: History of smoking for years currently taking Incruse Ellipta with good control of symptoms However every now then he does feel short of breath if he is active, also complaining of lack of stamina BMI is elevated having difficulty losing weight, I have encouraged him to move around as much as he can Continued to have back pain , patient is now seeing pain management for that He was diagnosed with lumbar spinal stenosis and is taking gabapentin, however this medication is coming from PCP office Follow-up in February, labs are needed before visit [facility] Medical History Obstructive sleep apnea Lumbar radicular pain Loss of taste Hip pain, right Obesity due to excess calories Other specified hypothyroidism History of skin cancer Benign prostatic hyperplasia Lipid disorder Dementia Diabetic neuropathy COPD (chronic obstructive pulmonary disease) Diabetes 1.5, managed as type 1 Family History Daughter Breast cancer Social History Housing: House Patient Tobacco Use Status: Former Tobacco user e-Cigarette/Vaping Use: Never Used service: No Current occupational status: retired Cognitive needs: No Hearing needs: No Vision needs: Yes Questionnaire Thrive Questionnaire Date Thrive assessed: 08/20/23 SAMINA-7 AMB Questionnaire SAMINA-7 Date SAMINA - 7 assessed: 08/20/23 Source: Developed by Drs. Jose Sauceda, Silvia Hay, Feng Julian and colleagues, with an educational hardik from [employer]. Review of Systems Const Denies chills and Denies fever(s) ENT Denies epistaxis and Denies nasal discharge Card Denies chest pain Resp Denies chest congestion, Denies cough and Denies hemoptysis GI Denies diarrhea and Denies nausea Skin/Breast Denies rash Neuro Reports no additional complaints Psych Reports no additional complaints Endo Reports no additional complaints Physical exam (Primary Care) Vital Signs: Last Vital Signs BP 130/80 11/22/23 12:48 BMI result Body Mass Index 37.7 Tobacco/Smoking Status: Tobacco use Status Tobacco use date assessed 11/22/23 11/22/23 12:56 Patient Tobacco Use Status Former Tobacco user 11/22/23 12:56 e-Cigarette/Vaping Use Never Used 11/22/23 12:56 Thrive Assessment: Date of Thrive Assessment Date Thrive assessed 08/20/23 11/22/23 12:56 Const General: cooperative, comfortable and no acute distress Orientation/consciousness: patient oriented x3 HENMT Head: Yes normocephalic Eyes General: appearance normal, both eyes and all related structures Neck Neck: Yes supple Resp Effort & Inspection: normal respiratory effort, no cough and no stridor Cardio Rhythm: regular rhythm Heart sounds: S1 normal heart sound present and S2 normal heart sound present Skin General skin exam: turgor normal Neuro General: patient oriented x3, tone normal and moves all extremities Extrem Other: My ankle edema which is baseline the patient Results Reviewed Results Reviewed: Laboratory Tests 02/12/23 02/12/23 08/20/23 14:10 14:10 13:21 Hemoglobin A1c % AST 35 40 H ALT 34 45 H Alkaline Phosphatase 143 H 169 H Vitamin B12 1317 H 08/20/23 13:21 Hemoglobin A1c % 6.8 H AST ALT Alkaline Phosphatase Vitamin B12 Assessment and Plan Assessment & Plan (1) Diabetes 1.5, managed as type 1: Code(s): E13.9 - Other specified diabetes mellitus without complications (2) COPD (chronic obstructive pulmonary disease): Code(s): J44.9 - Chronic obstructive pulmonary disease, unspecified Qualifiers: COPD type: emphysema Emphysema type: panlobular Qualified Code(s): J43.1 - Panlobular emphysema (3) Diabetic neuropathy: Code(s): E11.40 - Type 2 diabetes mellitus with diabetic neuropathy, unspecified Qualifiers: Diabetes mellitus complication detail: diabetic polyneuropathy Diabetes mellitus type: type 1 Qualified Code(s): E10.42 - Type 1 diabetes mellitus with diabetic polyneuropathy (4) Dementia: Code(s): F03.90 - Unspecified dementia, unspecified severity, without behavioral disturbance, psychotic disturbance, mood disturbance, and anxiety Qualifiers: Alzheimer's disease onset: late onset Dementia behavioral or psychological symptom: unspecified whether behavioral, psychotic, or mood disturbance or anxiety Dementia severity: mild Dementia type: Alzheimer's Qualified Code(s): G30.1 - Alzheimer's disease with late onset; F02.A0 - Dementia in other diseases classified elsewhere, mild, without behavioral disturbance, psychotic disturbance, mood disturbance, and anxiety (5) Lipid disorder: Code(s): E78.9 - Disorder of lipoprotein metabolism, unspecified (6) Benign prostatic hyperplasia: Code(s): N40.0 - Benign prostatic hyperplasia without lower urinary tract symptoms Qualifiers: Lower urinary tract symptom detail: nocturia Lower urinary tract symptom presence: symptoms present Qualified Code(s): N40.1 - Benign prostatic hyperplasia with lower urinary tract symptoms; R35.1 - Nocturia (7) Other specified hypothyroidism: Code(s): E03.8 - Other specified hypothyroidism (8) Obesity due to excess calories: Code(s): E66.09 - Other obesity due to excess calories Qualifiers: Body mass index: BMI 37.0-37.9 Obesity classification: adult class 2 (BMI 35 - 39.9) Serious obesity comorbidity presence: with serious comorbidity Qualified Code(s): E66.01 - Morbid (severe) obesity due to excess calories; Z68.37 - Body mass index [BMI] 37.0-37.9, adult (9) Hip pain, right: Code(s): M25.551 - Pain in right hip (10) Facet arthritis of lumbar region: Code(s): M47.816 - Spondylosis without myelopathy or radiculopathy, lumbar region (11) Lumbar spinal stenosis: Code(s): M48.061 - Spinal stenosis, lumbar region without neurogenic claudication Qualifiers: Neurogenic claudication status: unspecified Qualified Code(s): M48.061 - Spinal stenosis, lumbar region without neurogenic claudication Plan Patient is 88-year-old gentleman came in today for his regular follow-up appointment We have a professional fire information officer present today as patient speaks only [place] Sleep apnea: Patient is seeing Neurology, and has appointment coming up in December, he had a sleep study done recently which confirmed sleep apnea Diabetes mellitus: he is on Trulicity and glipizide along with Actos 15 mg and Farxiga , hemoglobin A1c is controlled patient is tolerating medication. diabetic neuropathy : he is on gabapentin 300 mg at night Patient also have history of skin cancer and is currently seeing a tax examining technician. Alzheimer's dementia, management through neurology Dr. Duarte Hypothyroidism: Patient is taking levothyroxine 88 mcg, TSH stable Blood pressure is stable continue losartan 100 mg and amlodipine 10 mg Patient is also on atorvastatin 40 mg for lipid control Tamsulosin for prostate COPD: History of smoking for years currently taking Incruse Ellipta with good control of symptoms However every now then he does feel short of breath if he is active, also complaining of lack of stamina BMI is elevated having difficulty losing weight, I have encouraged him to move around as much as he can Continued to have back pain , patient is now seeing pain management for that He was diagnosed with lumbar spinal stenosis and is taking gabapentin, however this medication is coming from PCP office Follow-up in February, labs are needed before visit Orders: Orders Microalbumin, Random (w Creat) Today E03.8 - Other specified hypothyroidism, E11.40 - Type 2 diabetes mellitus with diabetic neuropathy, unspecified, E13.9 - Other specified diabetes mellitus without complications, E66.09 - Other obesity due to excess calories, E78.9 - Disorder of lipoprotein metabolism, unspecified, F03.90 - Unspecified dementia, unspecified severity, without behavioral disturbance, psychotic disturbance, mood disturbance, and anxiety, J44.9 - Chronic obstructive pulmonary disease, unspecified, M25.551 - Pain in right hip, M47.816 - Spondylosis without myelopathy or radiculopathy, lumbar region, M48.061 - Spinal stenosis, lumbar region without neurogenic claudication, N40.0 - Benign prostatic hyperplasia without lower urinary tract symptoms LDL Cholesterol Direct Today E03.8 - Other specified hypothyroidism, E11.40 - Type 2 diabetes mellitus with diabetic neuropathy, unspecified, E13.9 - Other specified diabetes mellitus without complications, E66.09 - Other obesity due to excess calories, E78.9 - Disorder of lipoprotein metabolism, unspecified, F03.90 - Unspecified dementia, unspecified severity, without behavioral disturbance, psychotic disturbance, mood disturbance, and anxiety, J44.9 - Chronic obstructive pulmonary disease, unspecified, M25.551 - Pain in right hip, M47.816 - Spondylosis without myelopathy or radiculopathy, lumbar region, M48.061 - Spinal stenosis, lumbar region without neurogenic claudication, N40.0 - Benign prostatic hyperplasia without lower urinary tract symptoms Comprehensive Met. Panel Today E03.8 - Other specified hypothyroidism, E11.40 - Type 2 diabetes mellitus with diabetic neuropathy, unspecified, E13.9 - Other specified diabetes mellitus without complications, E66.09 - Other obesity due to excess calories, E78.9 - Disorder of lipoprotein metabolism, unspecified, F03.90 - Unspecified dementia, unspecified severity, without behavioral disturbance, psychotic disturbance, mood disturbance, and anxiety, J44.9 - Chronic obstructive pulmonary disease, unspecified, M25.551 - Pain in right hip, M47.816 - Spondylosis without myelopathy or radiculopathy, lumbar region, M48.061 - Spinal stenosis, lumbar region without neurogenic claudication, N40.0 - Benign prostatic hyperplasia without lower urinary tract symptoms Vitamin D 25-OH (D2 and D3) Today E11.40 - Type 2 diabetes mellitus with diabetic neuropathy, unspecified Ferritin Today E11.40 - Type 2 diabetes mellitus with diabetic neuropathy, unspecified Hemoglobin A1c Today E03.8 - Other specified hypothyroidism, E11.40 - Type 2 diabetes mellitus with diabetic neuropathy, unspecified, E13.9 - Other specified diabetes mellitus without complications, E66.09 - Other obesity due to excess calories, E78.9 - Disorder of lipoprotein metabolism, unspecified, F03.90 - Unspecified dementia, unspecified severity, without behavioral disturbance, psychotic disturbance, mood disturbance, and anxiety, J44.9 - Chronic obstructive pulmonary disease, unspecified, M25.551 - Pain in right hip, M47.816 - Spondylosis without myelopathy or radiculopathy, lumbar region, M48.061 - Spinal stenosis, lumbar region without neurogenic claudication, N40.0 - Benign prostatic hyperplasia without lower urinary tract symptoms Complete Blood Count Auto Diff Today E03.8 - Other specified hypothyroidism, E11.40 - Type 2 diabetes mellitus with diabetic neuropathy, unspecified, E13.9 - Other specified diabetes mellitus without complications, E66.09 - Other obesity due to excess calories, E78.9 - Disorder of lipoprotein metabolism, unspecified, F03.90 - Unspecified dementia, unspecified severity, without behavioral disturbance, psychotic disturbance, mood disturbance, and anxiety, J44.9 - Chronic obstructive pulmonary disease, unspecified, M25.551 - Pain in right hip, M47.816 - Spondylosis without myelopathy or radiculopathy, lumbar region, M48.061 - Spinal stenosis, lumbar region without neurogenic claudication, N40.0 - Benign prostatic hyperplasia without lower urinary tract symptoms TSH reflex Free T4 Today E03.8 - Other specified hypothyroidism Vitamin B12 Today E11.40 - Type 2 diabetes mellitus with diabetic neuropathy, unspecified Medications: Refilled atorvastatin 40 mg PO DAILY 90 tabs 3RF dulaglutide (Trulicity) 4.5 mg (0.5 mL) subcut QWEEK 6.5 mL 3RF 90 days gabapentin 300 mg PO BEDTIME 90 caps 0RF tamsulosin 0.4 mg PO BEDTIME 90 caps 0RF amlodipine 10 mg PO DAILY 90 tabs 0RF glipizide 10 mg PO DAILY 90 tabs 1RF levothyroxine 88 mcg PO DAILY 90 tabs 0RF losartan 100 mg PO DAILY 90 tabs 0RF pioglitazone 15 mg PO DAILY 90 tabs 0RF aspirin 81 mg PO DAILY 90 tabs 0RF blood sugar diagnostic ([employer] Verio test strips) Test blood sugar once a day 100 ea 7RF E11.40 - Type 2 diabetes mellitus with diabetic neuropathy, unspe cified, E13.9 - Other specified diabetes mellitus without complications Coding Level of Care Code Est Pt Level 5 (82952) Diagnoses Diabetes 1.5, managed as type 1 E13.9 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 E10.42 Diabetes mellitus complication detail: diabetic polyneuropathy Diabetes mellitus type: type 1 Mild late onset Alzheimer's dementia, unspecified whether behavioral, psychotic, or mood disturbance or anxiety G30.1; F02.A0 Alzheimer's disease onset: late onset Dementia behavioral or psychological symptom: unspecified whether behavioral, psychotic, or mood disturbance or anxiety Dementia severity: mild Dementia type: Alzheimer's Lipid disorder E78.9 Benign prostatic hyperplasia with nocturia N40.1; R35.1 Lower urinary tract symptom detail: nocturia Lower urinary tract symptom presence: symptoms present Other specified hypothyroidism E03.8 Class 2 severe obesity due to excess calories with serious comorbidity and body mass index (BMI) of 37.0 to 37.9 in adult E66.01; Z68.37 Body mass index: BMI 37.0-37.9 Obesity classification: adult class 2 (BMI 35 - 39.9) Serious obesity comorbidity presence: with serious comorbidity Hip pain, right M25.551 Facet arthritis of lumbar region M47.816 Spinal stenosis of lumbar region, unspecified whether neurogenic claudication present M48.061 Neurogenic claudication status: unspecified Time Spent (min) 41 Comment 5 pre visit, 21 with patient, 5 charting, 5 medications, 5 labs
== END 2023-11-22 13:36 | disposition home or self-care (01) ==
PROVIDERS: PCP Internal Medicine; Visit Provider Internal Medicine
DX: J43.1 Panlobular emphysema (principal); E10.42 Type 1 diabetes mellitus with diabetic polyneuropathy; G30.1 Alzheimer's disease with late onset; E66.01 Morbid (severe) obesity due to excess calories; F02.A0 Dementia in other diseases classified elsewhere, mild, without behavioral disturbance, psychotic disturbance, mood disturbance, and anxiety; Z68.37 Body mass index [BMI] 37.0-37.9, adult; E78.9 Disorder of lipoprotein metabolism, unspecified; N40.1 Benign prostatic hyperplasia with lower urinary tract symptoms; R35.1 Nocturia; E03.8 Other specified hypothyroidism; M25.551 Pain in right hip; M47.816 Spondylosis without myelopathy or radiculopathy, lumbar region
CPT/HCPCS: 99215

== ENCOUNTER 2023-12-10 11:13 | Outpatient (AMB) | payer OTHER, SELFPAY ==
--- NOTE | 2023-12-10 11:25 | A.OFFVIS_ITS ---
Intake Vital Signs 12/10/23 11:32 Height 5 ft 7 in Weight 244 lb BMI 38.2 BP 132/78 Blood Pressure Location Lt brachial Position Sitting Pulse 76 Pulse Source Pulse Oximeter Pulse Oximetry (%) 96 Oxygen Delivery Method Room Air Intake Visit Reasons: 2 mo f/u -Dementia - CONF Intake Note: Patients presents for f/u. concerned having more memoried loss Allergies No Known Allergies Allergy (Verified 11/22/23 12:49) HPI HPI Comments History of Present Illness Details 88y/o male comes for follow up of cognitive difficulties and sleep study. Pt is accompanied by certified esthetician and manager medical spa. The PSG sleep study result was significant for a mild degree of sleep apnea with increased severity in REM. The AHI was 8/hr, REM AHI was 22/hr and oxygen mary was 79%. Pt started APAP [id number] a week ago. Pt reports he sleeps well with CPAP, feel rested, and daytime tiredness has improved. The CPAP compliance and therapy response reviewed. The usage days 6 days, and average usage hours 5 hrs 24 min. The max pressure was 15.3 and the residual AHI was 1.7/hr. He has been having some memory issues for 30 years but for past 1 year it has worsened. He has short term memory issues, forgets conversations, misplaces things, confused with people, time, place etc. He needs help with his daily hygiene. He denies hallucination, delusions. He was on memantine 7 mg, denies side effects. [facility] Medical History Obstructive sleep apnea Lumbar radicular pain Loss of taste Hip pain, right Obesity due to excess calories Other specified hypothyroidism History of skin cancer Benign prostatic hyperplasia Lipid disorder Dementia Diabetic neuropathy COPD (chronic obstructive pulmonary disease) Diabetes 1.5, managed as type 1 Family History (Updated 12/10/23 @ 11:38 by Noelle Gomez CMA) Daughter Breast cancer Brother Shingles Social History Housing: House Patient Tobacco Use Status: Former Tobacco user e-Cigarette/Vaping Use: Never Used service: No Current occupational status: retired Cognitive needs: No Hearing needs: No Vision needs: Yes Review of Systems Const All systems reviewed & are unremarkable except as noted in HPI and below Neuro Reports confusion Psych Reports confusion Physical Exam Vital Signs: Last Vital Signs Pulse 76 12/10/23 11:32 BP 132/78 12/10/23 11:32 Pulse Ox 96 12/10/23 11:32 Oxygen Delivery Method Room Air 12/10/23 11:32 BMI result Body Mass Index 38.2 Const General: cooperative, healthy appearing, comfortable, no acute distress and confusion Nutritional Appearance: obese Orientation/consciousness: confusion Eyes Pupils: Equal, round and reactive pupils present Neuro Other: mild left facail droop General: tone normal, moves all extremities, no focal motor deficits and confusion Cranial nerves: Yes Equal, round and reactive pupils present, Yes Bilaterally intact EOM present, Yes Nystagmus not present, Yes Midline tongue present, Yes Symmetric palate elevation present and Yes Ability to bilaterally elevate shoulders present Cognition (Neuro): abnormal cognition Gait exam (Neuro): Antalgic gait present Deep tendon reflexes (DTR's): Right triceps reflex intensity grade: 2+, Left triceps reflex intensity grade: 2+, Rt Biceps (C5, C6): 2+, Left biceps reflex intensity grade: 2+, Right brachioradialis reflex intensity grade: 2+, Left brachioradialis reflex intensity grade: 2+, Right patellar reflex intensity grade: 2+ and Left patellar reflex intensity grade: 2+ Coordination: [id number] test normal Assessment & Plan Assessment & Plan (1) Dementia: Code(s): F03.90 - Unspecified dementia, unspecified severity, without behavioral disturbance, psychotic disturbance, mood disturbance, and anxiety Qualifiers: Dementia type: Alzheimer's Alzheimer's disease onset: late onset Dementia severity: mild Dementia behavioral or psychological symptom: unspecified whether behavioral, psychotic, or mood disturbance or anxiety Qualified Code(s): G30.1 - Alzheimer's disease with late onset; F02.A0 - Dementia in other diseases classified elsewhere, mild, without behavioral disturbance, psychotic disturbance, mood disturbance, and anxiety (2) Obstructive sleep apnea: Code(s): G47.33 - Obstructive sleep apnea (adult) (pediatric) Plan Advised patient to continue to use APAP [id number] as patient experiences good clinical effects. Stressed compliance, use CPAP nightly and more than 4 hrs. Increase memantine to 14 mg daily. Advised patient to increase daily physical and cognitive activities. Medications: New memantine 14 mg PO DAILY 30 days 30 ea 2RF Discontinued memantine Discontinued Reason: Doctor's Order 7 mg PO DAILY 30 ea 2RF Coding Level of Care Code Est Pt Level 4 (88290) Diagnoses Mild late onset Alzheimer's dementia, unspecified whether behavioral, psychotic, or mood disturbance or anxiety G30.1; F02.A0 Dementia type: Alzheimer's Alzheimer's disease onset: late onset Dementia severity: mild Dementia behavioral or psychological symptom: unspecified whether behavioral, psychotic, or mood disturbance or anxiety Obstructive sleep apnea G47.33
[2023-12-10 11:32] VITALS: BP 132/78; PULSE 76; O2SAT 96; BMI 38.2
== END 2023-12-10 11:57 | disposition home or self-care (01) ==
PROVIDERS: PCP Internal Medicine; Visit Provider Nurse Practitioner Family
DX: G30.1 Alzheimer's disease with late onset (principal); F02.A0 Dementia in other diseases classified elsewhere, mild, without behavioral disturbance, psychotic disturbance, mood disturbance, and anxiety; G47.33 Obstructive sleep apnea (adult) (pediatric)
CPT/HCPCS: 99214

== ENCOUNTER → 2023-12-10 11:13 | Outpatient (BNVA) | payer OTHER, SELFPAY | PROVIDERS: PCP Internal Medicine; Visit Provider Nurse Practitioner Family | DX: G30.1 Alzheimer's disease with late onset (principal); F02.A0 Dementia in other diseases classified elsewhere, mild, without behavioral disturbance, psychotic disturbance, mood disturbance, and anxiety; G47.33 Obstructive sleep apnea (adult) (pediatric) | CPT/HCPCS: 99212 ==

== ENCOUNTER 2023-12-20 10:42 | Outpatient (AMB) | payer OTHER, SELFPAY ==
--- NOTE | 2023-12-20 10:43 | A.OFFVIS_ITS ---
Intake Vital Signs 12/20/23 10:48 12/20/23 11:17 12/20/23 11:36 Height 5 ft 7 in Weight 244 lb BMI 38.2 BP 140/72 H 136/70 144/64 H Blood Pressure Location Lt brachial Lt brachial Lt brachial Position Sitting Sitting Sitting Respiration 16 16 16 Pulse 110 H 80 74 Pulse Source Pulse Oximeter Pulse Oximeter Pulse Oximeter Pulse Oximetry (%) 95 96 96 Oxygen Delivery Method Room Air Room Air Room Air Comment 15 min 25 min Intake Visit Reasons: Qutenza-DN Allergies No Known Allergies Allergy (Verified 12/20/23 10:48) HPI HPI Comments History of Present Illness Details Poncho is a very pleasant 88 year old male who presents to the office today for his 3rd application of 8% Capsaicin topical to both feet for peripheral neuropathy. He is accompanied by a Medical Engineering Leader. Patient reports he tolerated the last application well. He denies any changes to medications, PMH or allergies since last visit. EMLA cream was applied at home prior to the visit. He reports that he has noticed improvement in his symptoms since starting the topical Capsaicin applications. PRIOR 06/06/23: Poncho is a very pleasant 88 year old male who presents to the office today with his for evaluation and management of his left lower back pain. Patient recently evaluated by orthopedics for hip pain which has since resolved after PT. Today he complains of left lower back pain that radiates around to LLQ abdomen. He describes the pain as hot, burning, constant and severe. Area is non tender to palpation. He does take gabapentin for diabetic neuropathy but does not notice any benefit of pain relief to this area. Pain started around 2 months ago and persists. He denies inciting injury, has never had a rash in that area. Patient received 2 doses of shingles vaccines in the past. He is taking tylenol 650mg with some relief. He has not tried any topical medications, ice or heat for the pain. Patient is diabetic and complains of burning, pins and needles to both feet. At times the pain gets so severe he will have to bang them on the floor. Gabapentin is prescribed for the pain and helps some but he only takes it once daily. Most recent A1c was 6.9 on 02/12/2023. In terms of muscle damage condition is described as hot, burning, stabbing, sharp, tingling, pins and needles. Pain is negatively impacting his mood, mobility and general activity. [facility] Medical History Obstructive sleep apnea Lumbar radicular pain Loss of taste Hip pain, right Obesity due to excess calories Other specified hypothyroidism History of skin cancer Benign prostatic hyperplasia Lipid disorder Dementia Diabetic neuropathy COPD (chronic obstructive pulmonary disease) Diabetes 1.5, managed as type 1 Family History (Updated 12/10/23 @ 11:39 by Noelle Gomez CMA) Daughter Breast cancer Brother Stella Social History Housing: House Patient Tobacco Use Status: Former Tobacco user e-Cigarette/Vaping Use: Never Used service: No Current occupational status: retired Cognitive needs: No Hearing needs: No Vision needs: Yes Review of Systems Const All systems reviewed & are unremarkable except as noted in HPI and below Physical Exam Vital Signs: Last Vital Signs Pulse 80 12/20/23 11:17 Resp 16 12/20/23 11:17 BP 136/70 12/20/23 11:17 Pulse Ox 96 12/20/23 11:17 Oxygen Delivery Method Room Air 12/20/23 11:17 BMI result Body Mass Index 38.2 General: awake, alert. Answers questions appropriately. Fully engaged in examination. Skin: Decreased sensation dorsal and palmar surface feet bilaterally. No bruising, rashes, wounds or open areas noted to either foot. +2 pedal pulses bilaterally. HEENT: Normocephalic. . Hearing intact. Cardiac: External chest normal in appearance. Respiratory: No signs of trauma. No signs of respiratory distress. No cough, audible wheezing or stridor. Abdomen: without gross distension. MS: No obvious swelling or deformities. Able to transition from sit to stand unassisted. Neurological: Oriented to person, place, time and situation. Thought process intact. No gait abnormalities appreciated. Psychiatric: Appropriate mood and affect. Good judgment and insight. Office Meds capsaicin-skin cleanser 8 % topical kit Performing Provider: Cely Corona APRN, CNP Performing Location: [facility] Administered by: Cely Corona APRN, CNP on 12/20/23 11:01 2 Dose Route Admin Location Dispensed Lot Number Expiration Date [facility] [employer] 4 ea topical 4 ea [id number] 05/04/26 91291-970-45 [employer] Comments: Patient applied topical EMLA cream to both feet prior to arrival for his scheduled appointment. Feet exposed, no wounds, rashes or breaks in skin noted. Four single use topical patches (179mg capsaicin) divided between feet, 2 patches per foot, wrapped and secured per package instructions. Patient monitored throughout the procedure with BP checks every 15 minutes. He tolerated the 30 minute application well with reports of mild burning at completion. The burning improved with application of the cleansing lotion, he has lotion to use at home if needed. Assessment & Plan Assessment & Plan (1) Diabetic neuropathy: Code(s): E11.40 - Type 2 diabetes mellitus with diabetic neuropathy, unspecified Qualifiers: Diabetes mellitus complication detail: diabetic polyneuropathy Diabetes mellitus type: type 1 Qualified Code(s): E10.42 - Type 1 diabetes mellitus with diabetic polyneuropathy Plan oPncho presented to the office today for 3rd Qutenza topical application for bilateral peripheral neuropathy. Qutenza application as per above. Patient tolerated well with reports of mild burning at completion of the 30minutes. This improved with application of the cleansing gel. Cleansing gel applied prior to discharge, patient given cleansing gel for home use if needed. All questions and concerns were answered. Patient will follow up in the office as planned for next Qutenza application. Orders: Orders AMB Capsaicin Patch - Practice Supplied Today E11.40 - Type 2 diabetes mellitus with diabetic neuropathy, unspecified Coding Level of Care Code Est Pt Level 4 (94071) Diagnoses 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 E10.42 Diabetes mellitus complication detail: diabetic polyneuropathy Diabetes mellitus type: type 1
[2023-12-20 10:48] VITALS: BP 140/72; PULSE 110; RESP 16; O2SAT 95; BMI 38.2
[2023-12-20 11:17] VITALS: BP 136/70; PULSE 80; RESP 16; O2SAT 96
[2023-12-20 11:36] VITALS: BP 144/64; PULSE 74; RESP 16; O2SAT 96
== END 2023-12-20 11:35 | disposition home or self-care (01) ==
PROVIDERS: PCP Internal Medicine; Visit Provider Registered Nurse Emergency
DX: E11.40 Type 2 diabetes mellitus with diabetic neuropathy, unspecified (principal)
CPT/HCPCS: 17999; 99214

== ENCOUNTER → 2023-12-20 10:42 | Outpatient (BNVA) | payer OTHER, SELFPAY | PROVIDERS: PCP Internal Medicine; Visit Provider Registered Nurse Emergency | DX: E10.42 Type 1 diabetes mellitus with diabetic polyneuropathy (principal) | CPT/HCPCS: 17999; 99212; J7336 ==

== ENCOUNTER 2024-07-20 08:37 | Outpatient (AMB) | payer OTHER, SELFPAY ==
[2024-07-20 08:54] VITALS: BP 138/72; BMI 37.9
--- NOTE | 2024-07-20 08:54 | MHC.OFFVIS ---
Vital Signs 07/20/24 08:54 Height 5 ft 7 in Weight 242 lb BMI 37.9 BP 138/72 Blood Pressure Location Rt brachial Position Sitting Intake Visit Reasons: 3 month/ FU Intake Note: Patient presents for follow up. patient still forgetting things. Category Specialist Required: No Category Specialist Services: Category Specialist Present Category Specialist Name: [place] Allergies No Known Allergies Allergy (Verified 07/20/24 08:58) Medication List - Last Reconciled 07/20/[address] amlodipine 10 mg PO DAILY aspirin 81 mg PO DAILY atorvastatin 40 mg PO DAILY blood sugar diagnostic (Real Time WineTouch Verio test strips) Test blood sugar once a day blood-glucose meter ([employer] Verio Flex Meter) Once a day carbamide peroxide 6.5% (Debrox) 5 drps otic (ears) DAILY 4 days dapagliflozin propanediol (Farxiga) 10 mg PO DAILY dulaglutide (Trulicity) 4.5 mg (0.5 mL) subcut QWEEK 90 days gabapentin 300 mg PO BEDTIME galantamine ER 24 mg PO DAILY 90 days glipizide 10 mg PO DAILY lancets (Real Time WineTouch Delica Plus Lancet) test blood sugar once a day levothyroxine 88 mcg PO DAILY lidocaine 5% 1 patch topical DAILY PRN lidocaine-prilocaine 2.5-2.5 % 1 appl topical ONCE losartan 100 mg PO DAILY memantine 14 mg PO DAILY 30 days pioglitazone 15 mg PO DAILY tamsulosin 0.4 mg PO BEDTIME umeclidinium 62.5 mcg/actuation (Incruse Ellipta) 1 inh inhalation DAILY vit C,Z-Dn-lliql-lutein-zeaxan 250-90-40-1 mg (PreserVision AREDS-2) 1 cap PO BID HPI Comments Details: 89-yr-old male presents for f/u visit, accompanied by his and historic interpreter from his insurance. Pt reports that he is still easily forgetful. His feels it is time to increase Namenda- he is 14mg qd and tolerating well. Pt states he is overall eating and drinking well. He is sleeping well w/ CPAP. Sometimes if he sleeps longer tank dries out. Pt at times has oral dryness. He denies daytime sleepiness, but states he takes cat naps when inactive. Pt notices that he has a tremor when writing or sometimes when eating. Uses a large heavier spoon which helps. Denies rest tremor. He takes Gabapentin 300mg qhs for BLE neuropathic pain- it is unclear if this makes him sleepy or not. He is doing word searches. He does not exercise much- may take brief walks in the house- pt states to the fridge and back. denies any unsafe behavior. [address], [facility] Email: [email or web address] Compliance Report Usage 06/20/2024 - 07/19/2024 Usage days 28/30 days (93%) >= 4 hours 19 days (63%) < 4 hours 9 days (30%) Usage hours 152 hours 52 minutes Average usage (total days) 5 hours 6 minutes Average usage (days used) 5 hours 28 minutes Median usage (days used) 4 hours 56 minutes Total used hours (value since last reset - 07/19/2024) 1,158 hours [employer] 10 AutoSet Serial number [id number] Mode AutoSet Min Pressure 5 cmH2O Max Pressure 20 cmH2O EPR Fulltime EPR level 3 Response Standard Therapy Pressure - cmH2O Median: 10.6 95th percentile: 14.4 Maximum: 15.5 Leaks - L/min Median: 4.5 95th percentile: 27.3 Maximum: 49.3 Events per hour AI: 0.3 HI: 1.6 AHI: 1.9 Apnea Index Central: 0.0 Obstructive: 0.2 Unknown: 0.0 RERA Index 0.4 PFSH Medical History Obstructive sleep apnea Lumbar radicular pain Loss of taste Hip pain, right Obesity due to excess calories Other specified hypothyroidism History of skin cancer Benign prostatic hyperplasia Lipid disorder Dementia Diabetic neuropathy COPD (chronic obstructive pulmonary disease) Diabetes 1.5, managed as type 1 Family History Daughter Breast cancer Brother Shingles Social History Housing: House Patient Tobacco Use Status: Former Tobacco user e-Cigarette/Vaping Use: Never Used service: No Current occupational status: retired Cognitive needs: No Hearing needs: No Vision needs: Yes Review of Systems Const All systems reviewed & are unremarkable except as noted in HPI and below Physical Exam Vital Signs: Last Vital Signs BP 138/72 07/20/24 08:54 BMI result Body Mass Index 37.9 Const General: cooperative and no acute distress Resp Effort & Inspection: normal respiratory effort and able to speak in complete sentences Neuro Other: A&O w/ STM lapses, but responds appropriately. BUE kinetic tremor. General: CN's II-XI intact bilaterally Cognition (Neuro): normal cognition Motor exam (neuro): 5/5 motor strength present throughout Psych Appearance: grossly normal Speech and movement: Clear speech present Affect: normal affect Attitude: cooperative Assessment & Plan Assessment & Plan (1) Obstructive sleep apnea: Code(s): G47.33 - Obstructive sleep apnea (adult) (pediatric) Category: Medical (2) Dementia: Code(s): F03.90 - Unspecified dementia, unspecified severity, without behavioral disturbance, psychotic disturbance, mood disturbance, and anxiety Category: Medical Qualifiers: Dementia type: Alzheimer's Alzheimer's disease onset: late onset Dementia severity: mild Dementia behavioral or psychological symptom: unspecified whether behavioral, psychotic, or mood disturbance or anxiety Qualified Code(s): G30.1 - Alzheimer's disease with late onset; F02.A0 - Dementia in other diseases classified elsewhere, mild, without behavioral disturbance, psychotic disturbance, mood disturbance, and anxiety (3) Tremor: Code(s): R25.1 - Tremor, unspecified Category: Medical Plan Continue APAP [id number] nightly > 4 hrs, as patient has experienced good clinical effect from use. Monitor humidification, dry mouth. Will adjust setting if dry mouth worsens. Change and clean APAP supplies routinely. Increase memantine ER from 14mg to 21mg daily. Willc heck in w/ pt in 1 month to check tolerance- if tolerated, increase to 28mg. If Namenda is well-tolerated, consider trying low dose Gabapentin in am to help w/ kinetic tremor. Continue cognitive and social activities. Advised patient to increase daily physical activities. Monitor tremor. Use weighted spoon. f/u in 6 months or sooner prn. Medications: New memantine 21 mg PO DAILY 30 days 30 ea 1RF Discontinued memantine Discontinued Reason: Doctor's Order 14 mg PO DAILY 30 days 30 ea 3RF Coding Level of Care Code Est Pt Level 4 (45713) Diagnoses Obstructive sleep apnea G47.33 Mild late onset Alzheimer's dementia, unspecified whether behavioral, psychotic, or mood disturbance or anxiety G30.1; F02.A0 Dementia type: Alzheimer's Alzheimer's disease onset: late onset Dementia severity: mild Dementia behavioral or psychological symptom: unspecified whether behavioral, psychotic, or mood disturbance or anxiety Tremor R25.1
== END 2024-07-20 09:58 | disposition home or self-care (01) ==
PROVIDERS: Absent Provider Psychiatry & Neurology Neurology; PCP Internal Medicine; Visit Provider Nurse Practitioner Family
DX: G47.33 Obstructive sleep apnea (adult) (pediatric) (principal); G30.1 Alzheimer's disease with late onset; F02.A0 Dementia in other diseases classified elsewhere, mild, without behavioral disturbance, psychotic disturbance, mood disturbance, and anxiety; R25.1 Tremor, unspecified
CPT/HCPCS: 99214

== ENCOUNTER → 2024-07-20 08:37 | Outpatient (BNVA) | payer OTHER, SELFPAY | PROVIDERS: Absent Provider Psychiatry & Neurology Neurology; PCP Internal Medicine; Visit Provider Nurse Practitioner Family | DX: G47.33 Obstructive sleep apnea (adult) (pediatric) (principal); G30.1 Alzheimer's disease with late onset; F02.A0 Dementia in other diseases classified elsewhere, mild, without behavioral disturbance, psychotic disturbance, mood disturbance, and anxiety; R25.1 Tremor, unspecified; Z99.89 Dependence on other enabling machines and devices | CPT/HCPCS: 99212 ==